=== PATIENT | male | born 1950 | race African-American/Black ===

== ENCOUNTER 2022-02-10 18:34 | Observation (INO) ==
[2022-02-10] MEDS ORDERED: ALBUTEROL/IPRATROPIUM 3 ML NEB RESP TX STA ×2 (20:08→23:47)
[2022-02-10 20:47] LABS: Basophils # 0.1 10*3/uL (0.0-0.2); Basophils % 0.4 % (0.0-0.8); Eosinophils # 0.6 10*3/uL (0.0-0.87); Eosinophils % 3.4 % (0.00-10.9); Hemoglobin 13.4 GM/DL (14.0-18.0); Immature Granulocytes % 0.8 %; Immature Granulocytes Absolute 0.14 #; Lymphocytes % 5.6 % (21.2-54.2); Mean Corpuscular HGB Conc 31.9 GM/DL (32-36); Mean Corpuscular Volume 94.8 FL (87-102); Mean Platelet Volume 11.3 FL (9.6-12.0); Monocytes % 10.8 % (1.7-12.7); Platelet Count 150 T/CUMM (130-400); Red Blood Count 4.43 MC/CUMM (3.8-5.5); White Blood Count 18.3 T/CUMM (4-12)
[2022-02-10 20:55] LABS: INR 1.1; PT Patient Result 11.7 SECS (10.5-12.0)
[2022-02-10 21:09] LABS: Albumin 3.6 G/DL (3.4-5.0); Bilirubin,Total 1.3 MG/DL (0.20-1.00); Osmolality,Calculated 272.8 MOS/KG (273-304); Platelet Estimate Normal; Potassium 3.6 MMOL/L (3.5-5.1); Total Protein 7.5 G/DL (6.4-8.2)
[2022-02-10] MEDS ORDERED: FUROSEMIDE 40 MG/4 ML VIAL IV STA (21:12)
[2022-02-10 21:27] LABS: Hyaline Casts,Urine 1 /LPF (0-3); Mucus,Urine Occasional /LPF (Occasional); RBC,Urine 2 /HPF (0-4)
[2022-02-10 21:28] LABS: Bilirubin,Urine Negative (Negative); Blood, Urine Trace mg/dL (Negative); Glucose,Urine (UA) Negative (Negative); Ketones,Urine Negative (Negative); Nitrite,Urine Negative (Negative); Protein,Urine Negative (Negative); Urine Appearance Clear (Clear); Urine Color Yellow (Yellow); Urine Specific Gravity 1.025 (1.001-1.035)
[2022-02-10] MEDS ORDERED: methylPREDNISolone SOD SUC 40 MG/1 ML VIAL IV STA (21:57)
[2022-02-10] MEDS ORDERED: diphenhydrAMINE 50 MG/1 ML VIAL IV STA (21:57)
[2022-02-10] MEDS ORDERED: methylPREDNISolone SOD SUC 125 MG/2 ML VIAL IV STA (21:57)
[2022-02-10] MEDS ORDERED: FAMOTIDINE 20 MG/2 ML VIAL IV ONE (22:05)
[2022-02-10] MEDS ORDERED: FAMOTIDINE 20 MG/2 ML VIAL IV STA (22:08)
[2022-02-11] MEDS ORDERED: guaiFENesin/DM ER 600-30 MG TABLET PO PRN (01:35)
[2022-02-11] MEDS ORDERED: GLUCAGON 1 MG VIAL IM PRN ×2 (01:35)
[2022-02-11] MEDS ORDERED: BISACODYL 5 MG TABLET PO PRN (01:35)
[2022-02-11] MEDS ORDERED: hydrALAZINE 20 MG/1 ML VIAL IV PRN (01:35)
[2022-02-11] MEDS ORDERED: NICOTINE 21 MG/24 HR PATCH TRANSDERM PRN (01:35)
[2022-02-11] MEDS ORDERED: diphenhydrAMINE CAP 25 MG CAPSULE PO PRN (01:35)
[2022-02-11] MEDS ORDERED: ZALEPLON 5 MG CAPSULE PO PRN (01:35)
[2022-02-11] MEDS ORDERED: ACETAMINOPHEN 325 MG TABLET PO PRN (01:35)
[2022-02-11] MEDS ORDERED: DEXTROSE 50% 25 GM/50 ML VIAL IV PRN (01:35)
[2022-02-11] MEDS ORDERED: ONDANSETRON 4 MG/2 ML VIAL IV PRN (01:35)
[2022-02-11] MEDS ORDERED: DEXTROSE 10% 250 ML BAG IV PRN (02:08)
[2022-02-11] MEDS: HEPARIN 5,000 UNIT/1 ML VIAL SUBCUT SCH ×2 (02:34→14:13)
[2022-02-11 06:11] LABS: Blood Urea Nitrogen 12 MG/DL (7-18); Carbon Dioxide 20 MMOL/L (21-32); Chloride 103 MMOL/L (98-107); Estimated Glom Filtration Rate 96 ML/MIN; Glucose 195 MG/DL (74-106); Osmolality,Calculated 268.5 MOS/KG (273-304); Sodium 132 MMOL/L (136-145)
[2022-02-11 06:14] LABS: Calcium < 5.0 MG/DL (8.5-10.1)
[2022-02-11 06:16] LABS: Potassium 6.2 MMOL/L (3.5-5.1)
[2022-02-11 07:02] LABS: Basophils # 0.1 10*3/uL (0.0-0.2); Basophils % 0.3 % (0.0-0.8); Eosinophils % 0.1 % (0.00-10.9); Hematocrit 36.2 VOL% (42.0-52.0); Hemoglobin 11.8 GM/DL (14.0-18.0); Immature Granulocytes % 1.6 %; Immature Granulocytes Absolute 0.31 #; Lymphocytes % 5.5 % (21.2-54.2); Mean Corpuscular HGB Conc 32.6 GM/DL (32-36); Mean Platelet Volume 12.4 FL (9.6-12.0); Monocytes # 0.7 10*3/uL (0.11-0.8); Monocytes % 3.8 % (1.7-12.7); Neutrophils % 88.7 % (38.7-73.9); Platelet Count 142 T/CUMM (130-400); Red Blood Count 3.85 MC/CUMM (3.8-5.5); White Blood Count 19.1 T/CUMM (4-12)
[2022-02-11] MEDS: ALBUTEROL/IPRATROPIUM 3 ML NEB RESP TX SCH ×3 (07:08→19:35)
[2022-02-11 07:21] LABS: Lymphocytes 2 % (20-55); Platelet Estimate Adequate; Total Cells Counted 100
[2022-02-11 07:55] LABS: Arterial Base Excess iSTAT 3 MMOL/L (-2.5-2.5); Arterial Bicarbonate iSTAT 27.9 MMOL/L (20-26); Arterial O2 Saturation iSTAT 95 % (95-100); Arterial PCO2 iSTAT 43 MM HG (35-48); Arterial PO2 iSTAT 75 MM HG (80-95); Arterial Total CO2 iSTAT 29 MMO/L (23-27); Arterial pH iSTAT 7.421 (7.35-7.45)
[2022-02-11] MEDS: INSULIN LISPRO 100 UNIT/ML SUBCUT SCH ×4 (09:55→21:30)
[2022-02-11] MEDS: PANTOPRAZOLE 40 MG TABLET PO SCH (09:55)
[2022-02-11] MEDS: FUROSEMIDE 40 MG/4 ML VIAL IV SCH (16:57)
[2022-02-12] MEDS: ALBUTEROL/IPRATROPIUM 3 ML NEB RESP TX SCH ×4 (01:15→18:30)
[2022-02-12] MEDS: HEPARIN 5,000 UNIT/1 ML VIAL SUBCUT SCH ×2 (01:40→13:26)
[2022-02-12 05:08] LABS: Basophils # 0.1 10*3/uL (0.0-0.2); Basophils % 0.4 % (0.0-0.8); Eosinophils # 0.2 10*3/uL (0.0-0.87); Eosinophils % 0.9 % (0.00-10.9); Hematocrit 35.7 VOL% (42.0-52.0); Hemoglobin 11.6 GM/DL (14.0-18.0); Immature Granulocytes % 0.8 %; Immature Granulocytes Absolute 0.14 #; Lymphocytes # 1.8 10*3/uL (1.4-4.0); Lymphocytes % 10.1 % (21.2-54.2); Mean Corpuscular HGB Conc 32.5 GM/DL (32-36); Mean Corpuscular Volume 93.2 FL (87-102); Mean Platelet Volume 11.6 FL (9.6-12.0); Monocytes # 1.8 10*3/uL (0.11-0.8); Monocytes % 10.1 % (1.7-12.7); Neutrophils % 77.7 % (38.7-73.9); Platelet Count 141 T/CUMM (130-400); Red Blood Count 3.83 MC/CUMM (3.8-5.5); Red Cell Distribution Width 15.1 % (9.3-17.3); White Blood Count 17.9 T/CUMM (4-12)
[2022-02-12 05:50] LABS: Calcium 8.6 MG/DL (8.5-10.1); Osmolality,Calculated 282.4 MOS/KG (273-304); Potassium 3.3 MMOL/L (3.5-5.1)
[2022-02-12] MEDS: INSULIN LISPRO 100 UNIT/ML SUBCUT SCH ×4 (07:57→20:30)
[2022-02-12] MEDS: PANTOPRAZOLE 40 MG TABLET PO SCH (08:34)
[2022-02-12] MEDS: FUROSEMIDE 40 MG/4 ML VIAL IV SCH (08:34)
[2022-02-12] MEDS ORDERED: hydrOXYzine HCL 25 MG TABLET PO PRN (13:06)
[2022-02-12] MEDS ORDERED: POTASSIUM CHLORIDE 20 MEQ TABLET PO ONE (13:06)
[2022-02-12] MEDS: VALSARTAN 160 MG TABLET PO SCH (13:25)
[2022-02-12] MEDS: METOPROLOL SUCCINATE XL 100 MG TABLET PO SCH (13:25)
[2022-02-12] MEDS: ASPIRIN EC 81 MG TABLET PO SCH (13:25)
[2022-02-12] MEDS: SPIRONOLACTONE 25 MG TABLET PO SCH (13:25)
[2022-02-12] MEDS: GLIMEPIRIDE 4 MG TABLET PO SCH (17:03)
[2022-02-12] MEDS: DORZOLAMIDE/TIMOLOL OPH SOLN 10 ML BOTTLE BOTH EYES SCH (20:30)
[2022-02-12] MEDS: GABAPENTIN 300 MG CAPSULE PO SCH (20:30)
[2022-02-12] MEDS ORDERED: ATORVASTATIN 40 MG TABLET PO SCH (21:00)
[2022-02-12] MEDS ORDERED: LATANOPROST 0.005% OPH SOLN 2.5 ML BOTTLE BOTH EYES SCH (21:00)
[2022-02-13] MEDS: ALBUTEROL/IPRATROPIUM 3 ML NEB RESP TX SCH ×3 (00:35→12:53)
[2022-02-13] MEDS: HEPARIN 5,000 UNIT/1 ML VIAL SUBCUT SCH (02:15)
[2022-02-13 05:07] LABS: Basophils # 0.1 10*3/uL (0.0-0.2); Basophils % 0.6 % (0.0-0.8); Eosinophils # 0.7 10*3/uL (0.0-0.87); Eosinophils % 5.5 % (0.00-10.9); Hematocrit 35.9 VOL% (42.0-52.0); Hemoglobin 11.5 GM/DL (14.0-18.0); Immature Granulocytes % 1.6 %; Lymphocytes # 1.3 10*3/uL (1.4-4.0); Lymphocytes % 10.3 % (21.2-54.2); Mean Corpuscular Volume 93.5 FL (87-102); Mean Platelet Volume 11.7 FL (9.6-12.0); Monocytes # 1.8 10*3/uL (0.11-0.8); Monocytes % 14.1 % (1.7-12.7); Neutrophils % 67.9 % (38.7-73.9); Platelet Count 144 T/CUMM (130-400); Red Blood Count 3.84 MC/CUMM (3.8-5.5); Red Cell Distribution Width 15.2 % (9.3-17.3); White Blood Count 12.5 T/CUMM (4-12)
[2022-02-13] MEDS: INSULIN LISPRO 100 UNIT/ML SUBCUT SCH ×2 (08:54→13:24)
[2022-02-13] MEDS: ASPIRIN EC 81 MG TABLET PO SCH (08:55)
[2022-02-13] MEDS: GLIMEPIRIDE 4 MG TABLET PO SCH (08:55)
[2022-02-13] MEDS: GABAPENTIN 300 MG CAPSULE PO SCH (08:55)
[2022-02-13] MEDS: PANTOPRAZOLE 40 MG TABLET PO SCH (08:55)
[2022-02-13] MEDS: VALSARTAN 160 MG TABLET PO SCH (08:56)
[2022-02-13] MEDS: DORZOLAMIDE/TIMOLOL OPH SOLN 10 ML BOTTLE BOTH EYES SCH (08:56)
[2022-02-13] MEDS: METOPROLOL SUCCINATE XL 100 MG TABLET PO SCH (08:56)
[2022-02-13] MEDS: SPIRONOLACTONE 25 MG TABLET PO SCH (08:56)
[2022-02-13 11:48] VITALS: BP 149/78
== END 2022-02-13 14:52 | disposition home or self-care (01) ==
LOC: N.ED 18:34 → INTOOBSV 02-11 01:35 → SUATTDRO 02-11 01:35 → N.EDINP 02-11 02:17 → N.2E 02-11 03:27 → N.TELES 02-11 03:27 → UNDODISIN 02-13 14:52
PROVIDERS: ADMIT Internal Medicine; ATTEND Emergency Medicine

== ENCOUNTER 2022-06-05 04:26 | Inpatient (IN) ==
[2022-06-05] MEDS ORDERED: SODIUM CHLORIDE 0.9% 1,000 ML IV STA (04:39)
[2022-06-05] MEDS ORDERED: ONDANSETRON 4 MG/2 ML VIAL IV STA (04:39)
[2022-06-05 04:54] LABS: Basophils # 0.1 10*3/uL (0.0-0.2); Basophils % 0.4 % (0.0-0.8); Eosinophils # 0.2 10*3/uL (0.0-0.87); Eosinophils % 1.1 % (0.00-10.9); Hematocrit 28.7 VOL% (42.0-52.0); Hemoglobin 8.6 GM/DL (14.0-18.0); Immature Granulocytes Absolute 0.22 #; Lymphocytes # 1.1 10*3/uL (1.4-4.0); Lymphocytes % 5.1 % (21.2-54.2); Mean Corpuscular Volume 98.6 FL (87-102); Mean Platelet Volume 9.7 FL (9.6-12.0); Monocytes # 1.3 10*3/uL (0.11-0.8); Monocytes % 5.9 % (1.7-12.7); Neutrophils % 86.5 % (38.7-73.9); Platelet Count 546 T/CUMM (130-400); Red Blood Count 2.91 MC/CUMM (3.8-5.5); Red Cell Distribution Width 18.6 % (9.3-17.3); White Blood Count 21.5 T/CUMM (4-12)
[2022-06-05 05:14] LABS: Band Neutrophils 2 % (0-10); Eosinophils 2 % (0-10); Hypochromia Slight; Lymphocytes 1 % (20-55); Platelet Estimate Adequate; Total Cells Counted 100
[2022-06-05 05:23] LABS: Albumin 1.6 G/DL (3.4-5.0); Bilirubin,Total 0.5 MG/DL (0.20-1.00); Calcium 8.1 MG/DL (8.5-10.1); Osmolality,Calculated 288.8 MOS/KG (273-304)
[2022-06-05 05:43] LABS: Bacteria,Urine Occasional /HPF (Few); Glucose,Urine (UA) Negative (Negative); Hyaline Casts,Urine 28 /LPF (0-3); Mucus,Urine Occasional /LPF (Occasional); Protein,Urine 30 mg/dL (Negative); RBC,Urine 10 /HPF (0-4); Urine Appearance Clear (Clear); Urine Color Yellow (Yellow); Urine Specific Gravity 1.015 (1.001-1.035)
[2022-06-05 05:44] LABS: Bilirubin,Urine Small mg/dL (Negative); Blood, Urine Trace mg/dL (Negative); Ketones,Urine Trace mg/dL (Negative); Nitrite,Urine Negative (Negative)
[2022-06-05] MEDS ORDERED: MELOXICAM 7.5 MG TABLET PO PRN (08:06)
[2022-06-05] MEDS ORDERED: GLUCAGON 1 MG VIAL IM PRN (08:06)
[2022-06-05] MEDS ORDERED: oxyCODONE/ACETAMINOPHEN 5-325 MG TABLET PO PRN (08:06)
[2022-06-05] MEDS ORDERED: MORPHINE 2 MG/1 ML SYRINGE IV PRN (08:06)
[2022-06-05] MEDS ORDERED: ONDANSETRON 4 MG/2 ML VIAL IV PRN (08:06)
[2022-06-05] MEDS ORDERED: DEXTROSE 10% 250 ML BAG IV PRN ×2 (08:06→14:22)
[2022-06-05] MEDS ORDERED: GABAPENTIN 100 MG CAPSULE PO SCH (09:00)
[2022-06-05] MEDS ORDERED: PANTOPRAZOLE 40 MG TABLET PO SCH (09:00)
[2022-06-05] MEDS: ASPIRIN EC 81 MG TABLET PO SCH (09:44)
[2022-06-05] MEDS: DORZOLAMIDE/TIMOLOL OPH SOLN 10 ML BOTTLE BOTH EYES SCH ×2 (09:44→21:52)
[2022-06-05] MEDS: VALSARTAN 160 MG TABLET PO SCH (09:44)
[2022-06-05] MEDS: ATORVASTATIN 40 MG TABLET PO SCH (09:44)
[2022-06-05] MEDS: CLOBETASOL 0.05% CREAM 15 GM TUBE TOP SCH ×2 (09:44→21:52)
[2022-06-05] MEDS: METOPROLOL SUCCINATE XL 50 MG TABLET PO SCH (09:44)
[2022-06-05] MEDS: FUROSEMIDE 40 MG TABLET PO SCH (09:44)
[2022-06-05] MEDS: PANTOPRAZOLE 40 MG TABLET PO SCH (09:45)
[2022-06-05] MEDS: DOCUSATE SODIUM 100 MG CAPSULE PO SCH ×2 (09:45→21:52)
[2022-06-05] MEDS: SODIUM CHLORIDE 0.9% 1,000 ML IV SCH ×2 (09:48→18:21)
[2022-06-05] MEDS ORDERED: MAGNESIUM SULF RIDER 2 GM/50 ML PREMIX IV PRN (14:18)
[2022-06-05] MEDS ORDERED: MAGNESIUM SULF RIDER 4 GM/100 ML PREMIX IV PRN (14:18)
[2022-06-05] MEDS ORDERED: POTASSIUM CHLORIDE RIDER 10 MEQ/100 ML PREMIX IV PRN (14:19)
[2022-06-05] MEDS ORDERED: POTASSIUM CHLORIDE 20 MEQ TABLET PO PRN (14:19)
[2022-06-05] MEDS: cefTRIAXone 1,000 MG in SODIUM CHLORIDE 0.9% 100 ML IV SCH (15:14)
[2022-06-05] MEDS: INSULIN LISPRO 100 UNIT/ML SUBCUT SCH ×2 (15:54→21:52)
[2022-06-05] MEDS: LATANOPROST 0.005% OPH SOLN 2.5 ML BOTTLE BOTH EYES SCH (21:53)
[2022-06-06] MEDS: SODIUM CHLORIDE 0.9% 1,000 ML IV SCH ×2 (04:11→14:45)
[2022-06-06 05:52] LABS: Basophils # 0.1 10*3/uL (0.0-0.2); Basophils % 0.8 % (0.0-0.8); Eosinophils # 0.5 10*3/uL (0.0-0.87); Eosinophils % 3.1 % (0.00-10.9); Hematocrit 27.1 VOL% (42.0-52.0); Hemoglobin 8.2 GM/DL (14.0-18.0); Immature Granulocytes % 0.7 %; Immature Granulocytes Absolute 0.11 #; Lymphocytes # 1.2 10*3/uL (1.4-4.0); Lymphocytes % 7.6 % (21.2-54.2); Mean Corpuscular HGB Conc 30.3 GM/DL (32-36); Mean Corpuscular Volume 97.8 FL (87-102); Mean Platelet Volume 10.4 FL (9.6-12.0); Monocytes # 0.5 10*3/uL (0.11-0.8); Neutrophils % 84.8 % (38.7-73.9); Platelet Count 295 T/CUMM (130-400); Red Blood Count 2.77 MC/CUMM (3.8-5.5); Red Cell Distribution Width 18.6 % (9.3-17.3); White Blood Count 15.3 T/CUMM (4-12)
[2022-06-06 06:15] LABS: Eosinophils 4 % (0-10); Hypochromia Slight; Lymphocytes 4 % (20-55); Platelet Estimate Adequate; Total Cells Counted 100
[2022-06-06 06:25] LABS: Albumin 1.5 G/DL (3.4-5.0); Bilirubin,Total 0.5 MG/DL (0.20-1.00); Calcium 7.9 MG/DL (8.5-10.1); Osmolality,Calculated 285.1 MOS/KG (273-304); Total Protein 5.4 G/DL (6.4-8.2)
[2022-06-06] MEDS: INSULIN LISPRO 100 UNIT/ML SUBCUT SCH ×4 (08:07→21:55)
[2022-06-06] MEDS: METOPROLOL SUCCINATE XL 50 MG TABLET PO SCH (09:28)
[2022-06-06] MEDS: ATORVASTATIN 40 MG TABLET PO SCH (09:29)
[2022-06-06] MEDS: DOCUSATE SODIUM 100 MG CAPSULE PO SCH ×2 (09:29→21:55)
[2022-06-06] MEDS: PANTOPRAZOLE 40 MG TABLET PO SCH (09:29)
[2022-06-06] MEDS: ASPIRIN EC 81 MG TABLET PO SCH (09:30)
[2022-06-06] MEDS: FUROSEMIDE 40 MG TABLET PO SCH (09:30)
[2022-06-06] MEDS: DORZOLAMIDE/TIMOLOL OPH SOLN 10 ML BOTTLE BOTH EYES SCH ×2 (09:31→21:55)
[2022-06-06] MEDS: CLOBETASOL 0.05% CREAM 15 GM TUBE TOP SCH ×2 (09:32→21:55)
[2022-06-06] MEDS: cefTRIAXone 1,000 MG in SODIUM CHLORIDE 0.9% 100 ML IV SCH (14:46)
[2022-06-06] MEDS: VANCOMYCIN INJ 1,500 MG in SODIUM CHLORIDE 0.9% 500 ML IV SCH (16:00)
[2022-06-06] MEDS: hydrOXYzine HCL 25 MG TABLET PO PRN (16:22)
[2022-06-06] MEDS: ZINC OXIDE PASTE 113 GM TUBE TOP PRN (17:37)
[2022-06-06] MEDS: LATANOPROST 0.005% OPH SOLN 2.5 ML BOTTLE BOTH EYES SCH (23:14)
[2022-06-07] MEDS: VANCOMYCIN INJ 1,500 MG in SODIUM CHLORIDE 0.9% 500 ML IV SCH ×2 (03:00→15:31)
[2022-06-07 05:43] LABS: Basophils % 0.2 % (0.0-0.8); Eosinophils # 0.6 10*3/uL (0.0-0.87); Eosinophils % 5.7 % (0.00-10.9); Hematocrit 25.4 VOL% (42.0-52.0); Hemoglobin 7.6 GM/DL (14.0-18.0); Immature Granulocytes % 0.7 %; Immature Granulocytes Absolute 0.07 #; Lymphocytes % 9.5 % (21.2-54.2); Mean Corpuscular HGB Conc 29.9 GM/DL (32-36); Mean Corpuscular Volume 100.4 FL (87-102); Mean Platelet Volume 10.5 FL (9.6-12.0); Monocytes # 0.4 10*3/uL (0.11-0.8); Monocytes % 3.5 % (1.7-12.7); Neutrophils % 80.4 % (38.7-73.9); Platelet Count 319 T/CUMM (130-400); Red Blood Count 2.53 MC/CUMM (3.8-5.5); Red Cell Distribution Width 18.3 % (9.3-17.3); White Blood Count 10.7 T/CUMM (4-12)
[2022-06-07 06:04] LABS: Albumin 1.4 G/DL (3.4-5.0); Bilirubin,Total 0.4 MG/DL (0.20-1.00); Calcium 7.9 MG/DL (8.5-10.1); Osmolality,Calculated 278.3 MOS/KG (273-304); Potassium 4.2 MMOL/L (3.5-5.1); Total Protein 5.4 G/DL (6.4-8.2)
[2022-06-07] MEDS: INSULIN LISPRO 100 UNIT/ML SUBCUT SCH ×4 (08:01→21:14)
[2022-06-07] MEDS: METOPROLOL SUCCINATE XL 50 MG TABLET PO SCH (10:44)
[2022-06-07] MEDS: DOCUSATE SODIUM 100 MG CAPSULE PO SCH ×2 (10:44→21:14)
[2022-06-07] MEDS: VALSARTAN 160 MG TABLET PO SCH (10:44)
[2022-06-07] MEDS: ATORVASTATIN 40 MG TABLET PO SCH (10:44)
[2022-06-07] MEDS: ASPIRIN EC 81 MG TABLET PO SCH (10:45)
[2022-06-07] MEDS: PANTOPRAZOLE 40 MG TABLET PO SCH (10:45)
[2022-06-07] MEDS: DORZOLAMIDE/TIMOLOL OPH SOLN 10 ML BOTTLE BOTH EYES SCH ×2 (10:45→21:13)
[2022-06-07] MEDS: CLOBETASOL 0.05% CREAM 15 GM TUBE TOP SCH ×2 (10:45→21:15)
[2022-06-07] MEDS: cefTRIAXone 1,000 MG in SODIUM CHLORIDE 0.9% 100 ML IV SCH (14:37)
[2022-06-07] MEDS: LATANOPROST 0.005% OPH SOLN 2.5 ML BOTTLE BOTH EYES SCH (21:14)
[2022-06-07] MEDS: SKIN HEALING OINT (AQUAPHOR) 50 GM TUBE TOP PRN (21:15)
[2022-06-08] MEDS: VANCOMYCIN INJ 1,500 MG in SODIUM CHLORIDE 0.9% 500 ML IV SCH ×2 (04:17→16:11)
[2022-06-08] MEDS: NYSTATIN 500,000 UNIT/5 ML UDCUP SWISH/SWAL PRN ×2 (06:39→21:55)
[2022-06-08] MEDS: SODIUM CHLORIDE 0.9% 1,000 ML IV SCH ×2 (07:37→16:40)
[2022-06-08] MEDS: INSULIN LISPRO 100 UNIT/ML SUBCUT SCH ×4 (07:38→21:56)
[2022-06-08] MEDS: ASPIRIN EC 81 MG TABLET PO SCH (08:48)
[2022-06-08] MEDS: VALSARTAN 160 MG TABLET PO SCH (08:48)
[2022-06-08] MEDS: PANTOPRAZOLE 40 MG TABLET PO SCH (08:48)
[2022-06-08] MEDS: METOPROLOL SUCCINATE XL 50 MG TABLET PO SCH (08:48)
[2022-06-08] MEDS: ATORVASTATIN 40 MG TABLET PO SCH (08:48)
[2022-06-08] MEDS: DORZOLAMIDE/TIMOLOL OPH SOLN 10 ML BOTTLE BOTH EYES SCH ×2 (08:49→21:56)
[2022-06-08] MEDS: DOCUSATE SODIUM 100 MG CAPSULE PO SCH ×2 (08:49→21:55)
[2022-06-08] MEDS: CLOBETASOL 0.05% CREAM 15 GM TUBE TOP SCH ×2 (08:50→21:56)
[2022-06-08 11:06] LABS: Basophils % 0.4 % (0.0-0.8); Eosinophils # 0.2 10*3/uL (0.0-0.87); Eosinophils % 7.9 % (0.00-10.9); Hematocrit 26.5 VOL% (42.0-52.0); Immature Granulocytes % 13.2 %; Immature Granulocytes Absolute 0.37 #; Lymphocytes # 0.8 10*3/uL (1.4-4.0); Lymphocytes % 26.8 % (21.2-54.2); Mean Corpuscular HGB Conc 30.2 GM/DL (32-36); Mean Corpuscular Volume 99.6 FL (87-102); Mean Platelet Volume 10.4 FL (9.6-12.0); Monocytes # 0.4 10*3/uL (0.11-0.8); Monocytes % 12.5 % (1.7-12.7); NRBC # 0.02 10*3/uL; Neutrophils % 39.2 % (38.7-73.9); Red Blood Count 2.66 MC/CUMM (3.8-5.5); Red Cell Distribution Width 18.2 % (9.3-17.3)
[2022-06-08 11:14] LABS: Alanine Aminotransferase 19 U/L (16-61); Albumin 1.5 G/DL (3.4-5.0); Alkaline Phosphatase 72 U/L (45-117); Aspartate Amino Transferase 12 U/L (0-37); Bilirubin,Total < 0.39 MG/DL (0.20-1.00); Blood Urea Nitrogen 10 MG/DL (7-18); Calcium 8.3 MG/DL (8.5-10.1); Carbon Dioxide 31 MMOL/L (21-32); Chloride 107 MMOL/L (98-107); Glucose 154 MG/DL (74-106); Osmolality,Calculated 282.3 MOS/KG (273-304); Potassium 4.1 MMOL/L (3.5-5.1); Sodium 141 MMOL/L (136-145); Total Protein 5.7 G/DL (6.4-8.2)
[2022-06-08 11:15] LABS: White Blood Count 2.8 T/CUMM (4-12)
[2022-06-08 11:16] LABS: Platelet Count 253 T/CUMM (130-400)
[2022-06-08 12:28] LABS: Anisocytosis 1+; Band Neutrophils 1 % (0-10); Eosinophils 10 % (0-10); Lymphocytes 24 % (20-55); Platelet Estimate Adequate; Total Cells Counted 100
[2022-06-08] MEDS: cefTRIAXone 1,000 MG in SODIUM CHLORIDE 0.9% 100 ML IV SCH (15:17)
[2022-06-08] MEDS: LATANOPROST 0.005% OPH SOLN 2.5 ML BOTTLE BOTH EYES SCH (21:56)
[2022-06-09 04:23] LABS: Basophils % 0.4 % (0.0-0.8); Eosinophils # 0.1 10*3/uL (0.0-0.87); Eosinophils % 2.6 % (0.00-10.9); Hemoglobin 7.9 GM/DL (14.0-18.0); Immature Granulocytes % 8.1 %; Immature Granulocytes Absolute 0.44 #; Lymphocytes # 1.2 10*3/uL (1.4-4.0); Lymphocytes % 21.3 % (21.2-54.2); Mean Corpuscular HGB Conc 30.4 GM/DL (32-36); Mean Corpuscular Volume 99.6 FL (87-102); Mean Platelet Volume 10.7 FL (9.6-12.0); Monocytes # 0.5 10*3/uL (0.11-0.8); Monocytes % 8.8 % (1.7-12.7); NRBC # 0.02 10*3/uL; Neutrophils % 58.8 % (38.7-73.9); Red Blood Count 2.61 MC/CUMM (3.8-5.5); Red Cell Distribution Width 18.1 % (9.3-17.3); White Blood Count 5.4 T/CUMM (4-12)
[2022-06-09 04:24] LABS: Platelet Count 193 T/CUMM (130-400)
[2022-06-09 04:35] LABS: Alanine Aminotransferase 19 U/L (16-61); Albumin 1.5 G/DL (3.4-5.0); Alkaline Phosphatase 72 U/L (45-117); Aspartate Amino Transferase 16 U/L (0-37); Bilirubin,Total < 0.39 MG/DL (0.20-1.00); Blood Urea Nitrogen 9 MG/DL (7-18); Calcium 8.2 MG/DL (8.5-10.1); Carbon Dioxide 31 MMOL/L (21-32); Chloride 108 MMOL/L (98-107); Glucose 174 MG/DL (74-106); Osmolality,Calculated 285.1 MOS/KG (273-304); Potassium 4.2 MMOL/L (3.5-5.1); Sodium 142 MMOL/L (136-145); Total Protein 5.6 G/DL (6.4-8.2)
[2022-06-09 04:53] LABS: Band Neutrophils 2 % (0-10); Eosinophils 4 % (0-10); Lymphocytes 17 % (20-55); Metamyelocytes 2 %; Myelocytes 1 %; Total Cells Counted 100
[2022-06-09 04:55] LABS: Anisocytosis 1+; Macrocytosis 1+
[2022-06-09] MEDS: NYSTATIN 500,000 UNIT/5 ML UDCUP SWISH/SWAL PRN ×3 (05:11→21:37)
[2022-06-09] MEDS: INSULIN LISPRO 100 UNIT/ML SUBCUT SCH ×4 (09:09→21:38)
[2022-06-09] MEDS: METOPROLOL SUCCINATE XL 50 MG TABLET PO SCH (09:10)
[2022-06-09] MEDS: ASPIRIN EC 81 MG TABLET PO SCH (09:10)
[2022-06-09] MEDS: VALSARTAN 160 MG TABLET PO SCH (09:10)
[2022-06-09] MEDS: PANTOPRAZOLE 40 MG TABLET PO SCH (09:10)
[2022-06-09] MEDS: ATORVASTATIN 40 MG TABLET PO SCH (09:10)
[2022-06-09] MEDS: DOCUSATE SODIUM 100 MG CAPSULE PO SCH ×2 (09:10→21:37)
[2022-06-09] MEDS: CLOBETASOL 0.05% CREAM 15 GM TUBE TOP SCH ×2 (09:10→21:38)
[2022-06-09] MEDS: DORZOLAMIDE/TIMOLOL OPH SOLN 10 ML BOTTLE BOTH EYES SCH ×2 (09:10→21:38)
[2022-06-09] MEDS: SODIUM CHLORIDE 0.9% 1,000 ML IV SCH (10:43)
[2022-06-09] MEDS: VANCOMYCIN INJ 1,500 MG in SODIUM CHLORIDE 0.9% 500 ML IV SCH (11:23)
[2022-06-09] MEDS ORDERED: FILGRASTIM-SNDZ 480 MCG/0.8 ML SYRINGE SUBCUT SCH (11:35)
[2022-06-09] MEDS: LATANOPROST 0.005% OPH SOLN 2.5 ML BOTTLE BOTH EYES SCH (21:38)
[2022-06-09] MEDS: SKIN HEALING OINT (AQUAPHOR) 50 GM TUBE TOP PRN (21:38)
[2022-06-09] MEDS: SIMETHICONE CHEW 125 MG TABLET PO PRN (22:08)
[2022-06-10] MEDS: hydrOXYzine HCL 25 MG TABLET PO PRN ×2 (04:01→21:50)
[2022-06-10] MEDS: VANCOMYCIN INJ 1,500 MG in SODIUM CHLORIDE 0.9% 500 ML IV SCH ×2 (04:03→21:51)
[2022-06-10 05:53] LABS: Albumin 1.7 G/DL (3.4-5.0); Bilirubin,Total 0.5 MG/DL (0.20-1.00); Calcium 8.7 MG/DL (8.5-10.1); Potassium 4.3 MMOL/L (3.5-5.1); Total Protein 6.1 G/DL (6.4-8.2)
[2022-06-10 06:54] LABS: Basophils # 0.1 10*3/uL (0.0-0.2); Basophils % 0.3 % (0.0-0.8); Eosinophils # 0.1 10*3/uL (0.0-0.87); Eosinophils % 0.4 % (0.00-10.9); Hematocrit 27.1 VOL% (42.0-52.0); Hemoglobin 8.3 GM/DL (14.0-18.0); Immature Granulocytes % 11.6 %; Immature Granulocytes Absolute 2.74 #; Lymphocytes # 1.5 10*3/uL (1.4-4.0); Lymphocytes % 6.3 % (21.2-54.2); Mean Corpuscular HGB Conc 30.6 GM/DL (32-36); Mean Corpuscular Volume 97.8 FL (87-102); Mean Platelet Volume 10.4 FL (9.6-12.0); Monocytes # 0.9 10*3/uL (0.11-0.8); Monocytes % 3.8 % (1.7-12.7); NRBC # 0.09 10*3/uL; Neutrophils % 77.6 % (38.7-73.9); Platelet Count 173 T/CUMM (130-400); Red Blood Count 2.77 MC/CUMM (3.8-5.5); Red Cell Distribution Width 17.8 % (9.3-17.3)
[2022-06-10 06:55] LABS: White Blood Count 23.7 T/CUMM (4-12)
[2022-06-10 07:18] LABS: Band Neutrophils 3 % (0-10); Hypochromia Slight; Lymphocytes 8 % (20-55); Nucleated Red Blood Cells 1 /100 WBC (0-5); Platelet Estimate Adequate; Total Cells Counted 100
[2022-06-10 07:19] LABS: Macrocytosis Slight
[2022-06-10] MEDS: INSULIN LISPRO 100 UNIT/ML SUBCUT SCH ×4 (07:38→21:51)
[2022-06-10] MEDS: DOCUSATE SODIUM 100 MG CAPSULE PO SCH ×2 (09:26→21:50)
[2022-06-10] MEDS: PANTOPRAZOLE 40 MG TABLET PO SCH (09:26)
[2022-06-10] MEDS: ATORVASTATIN 40 MG TABLET PO SCH (09:26)
[2022-06-10] MEDS: ASPIRIN EC 81 MG TABLET PO SCH (09:26)
[2022-06-10] MEDS: METOPROLOL SUCCINATE XL 50 MG TABLET PO SCH (09:26)
[2022-06-10] MEDS: NYSTATIN 500,000 UNIT/5 ML UDCUP SWISH/SWAL PRN ×2 (09:26→21:49)
[2022-06-10] MEDS: DORZOLAMIDE/TIMOLOL OPH SOLN 10 ML BOTTLE BOTH EYES SCH ×2 (09:27→21:50)
[2022-06-10] MEDS: CLOBETASOL 0.05% CREAM 15 GM TUBE TOP SCH ×2 (09:27→21:50)
[2022-06-10] MEDS: VALSARTAN 160 MG TABLET PO SCH (09:29)
[2022-06-10] MEDS: LATANOPROST 0.005% OPH SOLN 2.5 ML BOTTLE BOTH EYES SCH (21:50)
[2022-06-11 05:48] LABS: Basophils # 0.1 10*3/uL (0.0-0.2); Basophils % 0.4 % (0.0-0.8); Eosinophils # 0.1 10*3/uL (0.0-0.87); Eosinophils % 0.2 % (0.00-10.9); Hemoglobin 7.5 GM/DL (14.0-18.0); Immature Granulocytes % 11.9 %; Immature Granulocytes Absolute 3.39 #; Lymphocytes # 1.5 10*3/uL (1.4-4.0); Lymphocytes % 5.4 % (21.2-54.2); Mean Corpuscular Volume 99.2 FL (87-102); Mean Platelet Volume 10.8 FL (9.6-12.0); Monocytes # 1.2 10*3/uL (0.11-0.8); Monocytes % 4.3 % (1.7-12.7); Neutrophils % 77.8 % (38.7-73.9); Platelet Count 110 T/CUMM (130-400); Red Blood Count 2.52 MC/CUMM (3.8-5.5); Red Cell Distribution Width 17.8 % (9.3-17.3); White Blood Count 28.6 T/CUMM (4-12)
[2022-06-11 06:15] LABS: Albumin 1.7 G/DL (3.4-5.0); Band Neutrophils 3 % (0-10); Bilirubin,Total 0.4 MG/DL (0.20-1.00); Calcium 8.4 MG/DL (8.5-10.1); Eosinophils 2 % (0-10); Lymphocytes 5 % (20-55); Potassium 4.2 MMOL/L (3.5-5.1); Total Cells Counted 100; Total Protein 5.8 G/DL (6.4-8.2)
[2022-06-11 06:16] LABS: Hypochromia Slight; Macrocytosis Slight
[2022-06-11] MEDS: INSULIN LISPRO 100 UNIT/ML SUBCUT SCH ×4 (07:30→21:17)
[2022-06-11] MEDS ORDERED: CLINDAMYCIN INJ 900 MG/50 ML PREMIX IV ONE ×2 (09:00→10:00)
[2022-06-11] MEDS ORDERED: LIDOCAINE 1%/EPI INJ 20 ML VIAL ONE (10:29)
[2022-06-11] MEDS ORDERED: BUPIVACAINE MPF 0.25% 10 ML VIAL ONE (10:29)
[2022-06-11] MEDS ORDERED: TISSUE ADHESIVE 1 EACH APPLICATOR TOP ONE (10:29)
[2022-06-11] MEDS ORDERED: fentaNYL 100 MCG/2 ML VIAL ONE (10:44)
[2022-06-11] MEDS ORDERED: LACTATED RINGERS 1,000 ML IV SCH (11:30)
[2022-06-11] MEDS ORDERED: LIDOCAINE 2% 5 ML VIAL ONE (11:54)
[2022-06-11] MEDS ORDERED: SODIUM CHLORIDE 0.9% 250 ML IV ONE (11:54)
[2022-06-11] MEDS ORDERED: propofoL 200 MG/20 ML VIAL IV ONE (11:54)
[2022-06-11] MEDS ORDERED: LABETALOL 20 MG/4 ML SYRINGE IV ONE (12:41)
[2022-06-11] MEDS: DOCUSATE SODIUM 100 MG CAPSULE PO SCH ×2 (13:50→21:08)
[2022-06-11] MEDS: FUROSEMIDE 40 MG TABLET PO SCH (13:50)
[2022-06-11] MEDS: PANTOPRAZOLE 40 MG TABLET PO SCH (13:50)
[2022-06-11] MEDS: ATORVASTATIN 40 MG TABLET PO SCH (13:50)
[2022-06-11] MEDS: METOPROLOL SUCCINATE XL 50 MG TABLET PO SCH (13:50)
[2022-06-11] MEDS: VALSARTAN 160 MG TABLET PO SCH (13:51)
[2022-06-11] MEDS: ASPIRIN EC 81 MG TABLET PO SCH (13:51)
[2022-06-11] MEDS: DORZOLAMIDE/TIMOLOL OPH SOLN 10 ML BOTTLE BOTH EYES SCH ×2 (13:52→21:07)
[2022-06-11] MEDS: CLOBETASOL 0.05% CREAM 15 GM TUBE TOP SCH ×2 (13:52→21:07)
[2022-06-11] MEDS: VANCOMYCIN INJ 1,500 MG in SODIUM CHLORIDE 0.9% 500 ML IV SCH (15:29)
[2022-06-11] MEDS: LATANOPROST 0.005% OPH SOLN 2.5 ML BOTTLE BOTH EYES SCH (21:08)
[2022-06-12 05:12] LABS: Basophils # 0.1 10*3/uL (0.0-0.2); Basophils % 0.4 % (0.0-0.8); Eosinophils # 0.2 10*3/uL (0.0-0.87); Eosinophils % 0.6 % (0.00-10.9); Hematocrit 27.1 VOL% (42.0-52.0); Hemoglobin 8.3 GM/DL (14.0-18.0); Immature Granulocytes % 7.9 %; Immature Granulocytes Absolute 1.95 #; Lymphocytes # 1.7 10*3/uL (1.4-4.0); Mean Corpuscular HGB Conc 30.6 GM/DL (32-36); Mean Corpuscular Volume 99.3 FL (87-102); Mean Platelet Volume 9.9 FL (9.6-12.0); Monocytes # 1.3 10*3/uL (0.11-0.8); Monocytes % 5.2 % (1.7-12.7); NRBC # 0.23 10*3/uL; Neutrophils % 78.9 % (38.7-73.9); Platelet Count 117 T/CUMM (130-400); Red Blood Count 2.73 MC/CUMM (3.8-5.5); Red Cell Distribution Width 18.4 % (9.3-17.3); White Blood Count 24.7 T/CUMM (4-12)
[2022-06-12 05:32] LABS: Band Neutrophils 1 % (0-10); Hypochromia Slight; Lymphocytes 6 % (20-55); Macrocytosis Slight; Metamyelocytes 1 %; Nucleated Red Blood Cells 1 /100 WBC (0-5); Polychromasia Slight; Total Cells Counted 100
[2022-06-12 05:33] LABS: Platelet Estimate Adequate
[2022-06-12 05:40] LABS: Albumin 1.9 G/DL (3.4-5.0); Bilirubin,Total 0.5 MG/DL (0.20-1.00); Calcium 8.5 MG/DL (8.5-10.1); Potassium 4.2 MMOL/L (3.5-5.1)
[2022-06-12] MEDS: INSULIN LISPRO 100 UNIT/ML SUBCUT SCH ×4 (08:12→21:52)
[2022-06-12] MEDS: DOCUSATE SODIUM 100 MG CAPSULE PO SCH ×2 (10:13→21:52)
[2022-06-12] MEDS: PANTOPRAZOLE 40 MG TABLET PO SCH (10:13)
[2022-06-12] MEDS: VANCOMYCIN INJ 1,500 MG in SODIUM CHLORIDE 0.9% 500 ML IV SCH (10:13)
[2022-06-12] MEDS: FUROSEMIDE 40 MG TABLET PO SCH (10:13)
[2022-06-12] MEDS: METOPROLOL SUCCINATE XL 50 MG TABLET PO SCH (10:13)
[2022-06-12] MEDS: ASPIRIN EC 81 MG TABLET PO SCH (10:13)
[2022-06-12] MEDS: VALSARTAN 160 MG TABLET PO SCH (10:14)
[2022-06-12] MEDS: DORZOLAMIDE/TIMOLOL OPH SOLN 10 ML BOTTLE BOTH EYES SCH ×2 (10:14→21:52)
[2022-06-12] MEDS: CLOBETASOL 0.05% CREAM 15 GM TUBE TOP SCH ×2 (10:14→21:52)
[2022-06-12] MEDS: ATORVASTATIN 40 MG TABLET PO SCH (10:14)
[2022-06-12] MEDS: hydrOXYzine HCL 25 MG TABLET PO PRN (14:07)
[2022-06-12] MEDS: LATANOPROST 0.005% OPH SOLN 2.5 ML BOTTLE BOTH EYES SCH (21:52)
[2022-06-12] MEDS: VANCOMYCIN INJ 1,250 MG in SODIUM CHLORIDE 0.9% 250 ML IV SCH (22:02)
[2022-06-13 06:33] LABS: Albumin 1.9 G/DL (3.4-5.0); Bilirubin,Total 0.5 MG/DL (0.20-1.00); Calcium 8.3 MG/DL (8.5-10.1); Osmolality,Calculated 281.1 MOS/KG (273-304); Potassium 4.3 MMOL/L (3.5-5.1); Total Protein 5.5 G/DL (6.4-8.2)
[2022-06-13] MEDS: INSULIN LISPRO 100 UNIT/ML SUBCUT SCH ×4 (07:50→21:29)
[2022-06-13 08:28] LABS: Basophils # 0.1 10*3/uL (0.0-0.2); Basophils % 0.7 % (0.0-0.8); Eosinophils # 0.2 10*3/uL (0.0-0.87); Eosinophils % 1.4 % (0.00-10.9); Hematocrit 29.3 VOL% (42.0-52.0); Immature Granulocytes % 7.9 %; Immature Granulocytes Absolute 1.05 #; Lymphocytes # 1.5 10*3/uL (1.4-4.0); Lymphocytes % 11.1 % (21.2-54.2); Mean Corpuscular HGB Conc 30.7 GM/DL (32-36); Mean Corpuscular Volume 96.7 FL (87-102); Mean Platelet Volume 11.6 FL (9.6-12.0); Monocytes % 7.5 % (1.7-12.7); NRBC # 0.13 10*3/uL; Neutrophils % 71.4 % (38.7-73.9); Platelet Count 100 T/CUMM (130-400); Red Blood Count 3.03 MC/CUMM (3.8-5.5); Red Cell Distribution Width 18.9 % (9.3-17.3); White Blood Count 13.4 T/CUMM (4-12)
[2022-06-13 08:45] LABS: Band Neutrophils 2 % (0-10); Eosinophils 3 % (0-10); Lymphocytes 8 % (20-55); Nucleated Red Blood Cells 1 /100 WBC (0-5); Total Cells Counted 100
[2022-06-13 08:46] LABS: Hypochromia Slight; Microcytosis Slight
[2022-06-13] MEDS: ASPIRIN EC 81 MG TABLET PO SCH (09:15)
[2022-06-13] MEDS: ATORVASTATIN 40 MG TABLET PO SCH (09:15)
[2022-06-13] MEDS: DOCUSATE SODIUM 100 MG CAPSULE PO SCH ×2 (09:15→21:24)
[2022-06-13] MEDS: VALSARTAN 160 MG TABLET PO SCH (09:15)
[2022-06-13] MEDS: hydrALAZINE 25 MG TABLET PO SCH ×3 (09:15→21:24)
[2022-06-13] MEDS: FUROSEMIDE 40 MG TABLET PO SCH (09:15)
[2022-06-13] MEDS: METOPROLOL SUCCINATE XL 50 MG TABLET PO SCH (09:15)
[2022-06-13] MEDS: PANTOPRAZOLE 40 MG TABLET PO SCH (09:15)
[2022-06-13] MEDS: DORZOLAMIDE/TIMOLOL OPH SOLN 10 ML BOTTLE BOTH EYES SCH ×2 (09:17→21:24)
[2022-06-13] MEDS: VANCOMYCIN INJ 1,250 MG in SODIUM CHLORIDE 0.9% 250 ML IV SCH ×2 (09:17→21:25)
[2022-06-13] MEDS: CLOBETASOL 0.05% CREAM 15 GM TUBE TOP SCH ×2 (09:17→21:24)
[2022-06-13] MEDS: CYCLOBENZAPRINE 10 MG TABLET PO PRN (21:26)
[2022-06-13] MEDS: LATANOPROST 0.005% OPH SOLN 2.5 ML BOTTLE BOTH EYES SCH (21:27)
[2022-06-14 05:16] LABS: Basophils # 0.1 10*3/uL (0.0-0.2); Basophils % 0.9 % (0.0-0.8); Eosinophils # 0.3 10*3/uL (0.0-0.87); Eosinophils % 2.3 % (0.00-10.9); Hematocrit 30.9 VOL% (42.0-52.0); Hemoglobin 9.4 GM/DL (14.0-18.0); Immature Granulocytes % 6.9 %; Immature Granulocytes Absolute 0.95 #; Lymphocytes # 1.6 10*3/uL (1.4-4.0); Lymphocytes % 11.6 % (21.2-54.2); Mean Corpuscular HGB Conc 30.4 GM/DL (32-36); Mean Platelet Volume 11.6 FL (9.6-12.0); Monocytes # 1.4 10*3/uL (0.11-0.8); Monocytes % 9.9 % (1.7-12.7); NRBC # 0.07 10*3/uL; Neutrophils % 68.4 % (38.7-73.9); Platelet Count 95 T/CUMM (130-400); Red Blood Count 3.12 MC/CUMM (3.8-5.5); Red Cell Distribution Width 19.6 % (9.3-17.3); White Blood Count 13.7 T/CUMM (4-12)
[2022-06-14 05:40] LABS: Albumin 1.7 G/DL (3.4-5.0); Bilirubin,Total 0.5 MG/DL (0.20-1.00); Calcium 8.6 MG/DL (8.5-10.1); Osmolality,Calculated 273.5 MOS/KG (273-304); Total Protein 5.8 G/DL (6.4-8.2)
[2022-06-14 05:56] LABS: Band Neutrophils 1 % (0-10); Eosinophils 1 % (0-10); Hypochromia Slight; Lymphocytes 8 % (20-55); Macrocytosis Slight; Platelet Estimate Decreased; Total Cells Counted 100
[2022-06-14] MEDS: INSULIN LISPRO 100 UNIT/ML SUBCUT SCH ×4 (07:21→20:58)
[2022-06-14] MEDS: ATORVASTATIN 40 MG TABLET PO SCH (09:42)
[2022-06-14] MEDS: hydrALAZINE 25 MG TABLET PO SCH ×3 (09:42→20:57)
[2022-06-14] MEDS: VALSARTAN 160 MG TABLET PO SCH (09:43)
[2022-06-14] MEDS: PANTOPRAZOLE 40 MG TABLET PO SCH (09:44)
[2022-06-14] MEDS: FUROSEMIDE 40 MG TABLET PO SCH (09:44)
[2022-06-14] MEDS: METOPROLOL SUCCINATE XL 50 MG TABLET PO SCH (09:44)
[2022-06-14] MEDS: ASPIRIN EC 81 MG TABLET PO SCH (09:44)
[2022-06-14] MEDS: DOCUSATE SODIUM 100 MG CAPSULE PO SCH ×2 (09:45→20:58)
[2022-06-14] MEDS: CLOBETASOL 0.05% CREAM 15 GM TUBE TOP SCH ×2 (09:45→20:58)
[2022-06-14] MEDS: DORZOLAMIDE/TIMOLOL OPH SOLN 10 ML BOTTLE BOTH EYES SCH ×2 (09:46→20:58)
[2022-06-14] MEDS: VANCOMYCIN INJ 1,250 MG in SODIUM CHLORIDE 0.9% 250 ML IV SCH ×2 (09:47→20:59)
[2022-06-14] MEDS: LATANOPROST 0.005% OPH SOLN 2.5 ML BOTTLE BOTH EYES SCH (20:59)
[2022-06-14] MEDS: CYCLOBENZAPRINE 10 MG TABLET PO PRN (21:00)
[2022-06-15 06:27] LABS: Basophils # 0.1 10*3/uL (0.0-0.2); Basophils % 1.1 % (0.0-0.8); Eosinophils # 0.7 10*3/uL (0.0-0.87); Eosinophils % 5.4 % (0.00-10.9); Hematocrit 32.2 VOL% (42.0-52.0); Hemoglobin 9.8 GM/DL (14.0-18.0); Immature Granulocytes % 5.8 %; Immature Granulocytes Absolute 0.74 #; Lymphocytes # 1.8 10*3/uL (1.4-4.0); Lymphocytes % 13.8 % (21.2-54.2); Mean Corpuscular HGB Conc 30.4 GM/DL (32-36); Mean Corpuscular Volume 98.8 FL (87-102); Monocytes # 1.4 10*3/uL (0.11-0.8); Monocytes % 11.2 % (1.7-12.7); NRBC # 0.02 10*3/uL; Neutrophils % 62.7 % (38.7-73.9); Platelet Count 118 T/CUMM (130-400); Red Blood Count 3.26 MC/CUMM (3.8-5.5); Red Cell Distribution Width 20.1 % (9.3-17.3); White Blood Count 12.8 T/CUMM (4-12)
[2022-06-15 06:54] LABS: Albumin 1.7 G/DL (3.4-5.0); Bilirubin,Total 0.4 MG/DL (0.20-1.00); Calcium 8.5 MG/DL (8.5-10.1); Osmolality,Calculated 287.7 MOS/KG (273-304); Total Protein 5.8 G/DL (6.4-8.2)
[2022-06-15] MEDS: INSULIN LISPRO 100 UNIT/ML SUBCUT SCH ×4 (07:30→21:25)
[2022-06-15 07:49] LABS: Eosinophils 6 % (0-10); Lymphocytes 24 % (20-55); Platelet Estimate Adequate; Total Cells Counted 100
[2022-06-15] MEDS: VANCOMYCIN INJ 1,250 MG in SODIUM CHLORIDE 0.9% 250 ML IV SCH ×3 (09:20→21:27)
[2022-06-15] MEDS: PANTOPRAZOLE 40 MG TABLET PO SCH (09:21)
[2022-06-15] MEDS: VALSARTAN 160 MG TABLET PO SCH (09:21)
[2022-06-15] MEDS: DOCUSATE SODIUM 100 MG CAPSULE PO SCH ×2 (09:21→21:25)
[2022-06-15] MEDS: METOPROLOL SUCCINATE XL 50 MG TABLET PO SCH (09:21)
[2022-06-15] MEDS: FUROSEMIDE 40 MG TABLET PO SCH (09:21)
[2022-06-15] MEDS: ATORVASTATIN 40 MG TABLET PO SCH (09:21)
[2022-06-15] MEDS: hydrALAZINE 25 MG TABLET PO SCH ×3 (09:21→21:25)
[2022-06-15] MEDS: ASPIRIN EC 81 MG TABLET PO SCH (09:21)
[2022-06-15] MEDS: CLOBETASOL 0.05% CREAM 15 GM TUBE TOP SCH ×2 (09:33→21:27)
[2022-06-15] MEDS: DORZOLAMIDE/TIMOLOL OPH SOLN 10 ML BOTTLE BOTH EYES SCH ×2 (09:33→21:25)
[2022-06-15] MEDS: LATANOPROST 0.005% OPH SOLN 2.5 ML BOTTLE BOTH EYES SCH (21:27)
[2022-06-15] MEDS: CYCLOBENZAPRINE 10 MG TABLET PO PRN (21:28)
[2022-06-16] MEDS: ALBUMIN 25% 25 GM/100 ML VIAL IV SCH ×3 (01:38→17:08)
[2022-06-16 06:23] LABS: Basophils # 0.1 10*3/uL (0.0-0.2); Basophils % 1.4 % (0.0-0.8); Eosinophils # 0.8 10*3/uL (0.0-0.87); Eosinophils % 9.7 % (0.00-10.9); Hematocrit 31.4 VOL% (42.0-52.0); Hemoglobin 9.4 GM/DL (14.0-18.0); Immature Granulocytes % 3.1 %; Immature Granulocytes Absolute 0.25 #; Lymphocytes # 1.3 10*3/uL (1.4-4.0); Mean Corpuscular HGB Conc 29.9 GM/DL (32-36); Mean Corpuscular Volume 100.3 FL (87-102); Mean Platelet Volume 11.5 FL (9.6-12.0); Monocytes # 1.1 10*3/uL (0.11-0.8); Monocytes % 13.1 % (1.7-12.7); Neutrophils % 56.7 % (38.7-73.9); Platelet Count 143 T/CUMM (130-400); Red Blood Count 3.13 MC/CUMM (3.8-5.5); Red Cell Distribution Width 19.9 % (9.3-17.3)
[2022-06-16 06:46] LABS: Albumin 2.2 G/DL (3.4-5.0); Bilirubin,Total 0.7 MG/DL (0.20-1.00); Calcium 8.4 MG/DL (8.5-10.1); Osmolality,Calculated 294.4 MOS/KG (273-304); Potassium 3.7 MMOL/L (3.5-5.1); Total Protein 6.1 G/DL (6.4-8.2)
[2022-06-16 07:32] LABS: Platelet Estimate Adequate
[2022-06-16] MEDS: INSULIN LISPRO 100 UNIT/ML SUBCUT SCH ×4 (07:46→21:26)
[2022-06-16] MEDS: VALSARTAN 160 MG TABLET PO SCH (09:50)
[2022-06-16] MEDS: PANTOPRAZOLE 40 MG TABLET PO SCH (09:50)
[2022-06-16] MEDS: ATORVASTATIN 40 MG TABLET PO SCH (09:50)
[2022-06-16] MEDS: METOPROLOL SUCCINATE XL 50 MG TABLET PO SCH (09:51)
[2022-06-16] MEDS: ASPIRIN EC 81 MG TABLET PO SCH (09:51)
[2022-06-16] MEDS: FUROSEMIDE 40 MG TABLET PO SCH (09:51)
[2022-06-16] MEDS: hydrALAZINE 25 MG TABLET PO SCH ×3 (09:51→21:11)
[2022-06-16] MEDS: SKIN HEALING OINT (AQUAPHOR) 50 GM TUBE TOP SCH (09:51)
[2022-06-16] MEDS: DOCUSATE SODIUM 100 MG CAPSULE PO SCH ×2 (09:51→21:11)
[2022-06-16] MEDS: CLOBETASOL 0.05% CREAM 15 GM TUBE TOP SCH ×2 (09:51→21:11)
[2022-06-16] MEDS: DORZOLAMIDE/TIMOLOL OPH SOLN 10 ML BOTTLE BOTH EYES SCH ×2 (09:53→21:11)
[2022-06-16] MEDS: hydrOXYzine HCL 25 MG TABLET PO PRN ×2 (10:42→21:12)
[2022-06-16] MEDS: VANCOMYCIN INJ 1,250 MG in SODIUM CHLORIDE 0.9% 250 ML IV SCH (12:27)
[2022-06-16] MEDS: LATANOPROST 0.005% OPH SOLN 2.5 ML BOTTLE BOTH EYES SCH (21:11)
[2022-06-16] MEDS: GABAPENTIN 100 MG CAPSULE PO PRN (21:12)
[2022-06-16] MEDS: CYCLOBENZAPRINE 10 MG TABLET PO PRN (21:13)
[2022-06-17] MEDS: ALBUMIN 25% 25 GM/100 ML VIAL IV SCH ×3 (00:07→16:38)
[2022-06-17] MEDS: VANCOMYCIN INJ 1,250 MG in SODIUM CHLORIDE 0.9% 250 ML IV SCH (03:26)
[2022-06-17] MEDS: INSULIN LISPRO 100 UNIT/ML SUBCUT SCH ×4 (08:18→21:33)
[2022-06-17 08:45] LABS: Albumin 2.5 G/DL (3.4-5.0); Bilirubin,Direct 0.21 MG/DL (0.0-0.20); Bilirubin,Indirect 0.6 MG/DL (0.0-1.0); Bilirubin,Total 0.8 MG/DL (0.20-1.00); Total Protein 5.6 G/DL (6.4-8.2)
[2022-06-17] MEDS: METOPROLOL SUCCINATE XL 50 MG TABLET PO SCH (09:38)
[2022-06-17] MEDS: hydrALAZINE 25 MG TABLET PO SCH ×3 (09:38→21:33)
[2022-06-17] MEDS: DOCUSATE SODIUM 100 MG CAPSULE PO SCH ×2 (09:38→21:33)
[2022-06-17] MEDS: ASPIRIN EC 81 MG TABLET PO SCH (09:38)
[2022-06-17] MEDS: VALSARTAN 160 MG TABLET PO SCH (09:38)
[2022-06-17] MEDS: PANTOPRAZOLE 40 MG TABLET PO SCH (09:38)
[2022-06-17] MEDS: DORZOLAMIDE/TIMOLOL OPH SOLN 10 ML BOTTLE BOTH EYES SCH ×2 (09:39→21:33)
[2022-06-17] MEDS: CLOBETASOL 0.05% CREAM 15 GM TUBE TOP SCH ×2 (09:39→21:35)
[2022-06-17] MEDS: FUROSEMIDE 40 MG TABLET PO SCH (09:39)
[2022-06-17] MEDS: SKIN HEALING OINT (AQUAPHOR) 50 GM TUBE TOP SCH (09:39)
[2022-06-17] MEDS: hydrOXYzine HCL 25 MG TABLET PO PRN (21:35)
[2022-06-17] MEDS: LATANOPROST 0.005% OPH SOLN 2.5 ML BOTTLE BOTH EYES SCH (21:35)
[2022-06-17] MEDS: ACETAMINOPHEN 325 MG TABLET PO PRN (21:36)
[2022-06-17] MEDS: CYCLOBENZAPRINE 10 MG TABLET PO PRN (21:37)
[2022-06-17] MEDS: GABAPENTIN 100 MG CAPSULE PO PRN (21:42)
[2022-06-18] MEDS: ALBUMIN 25% 25 GM/100 ML VIAL IV SCH ×2 (00:19→16:05)
[2022-06-18 07:13] LABS: Calcium 8.6 MG/DL (8.5-10.1); Potassium 3.6 MMOL/L (3.5-5.1)
[2022-06-18] MEDS ORDERED: SODIUM CHLORIDE 0.9% 500 ML IV ONE (08:03)
[2022-06-18] MEDS: INSULIN LISPRO 100 UNIT/ML SUBCUT SCH ×4 (09:15→21:06)
[2022-06-18] MEDS: ASPIRIN EC 81 MG TABLET PO SCH (09:17)
[2022-06-18] MEDS: FUROSEMIDE 40 MG TABLET PO SCH (09:17)
[2022-06-18] MEDS: VALSARTAN 160 MG TABLET PO SCH (09:17)
[2022-06-18] MEDS: hydrALAZINE 25 MG TABLET PO SCH ×3 (09:17→21:07)
[2022-06-18] MEDS: METOPROLOL SUCCINATE XL 50 MG TABLET PO SCH (09:17)
[2022-06-18] MEDS: DOCUSATE SODIUM 100 MG CAPSULE PO SCH ×2 (09:17→21:07)
[2022-06-18] MEDS: PANTOPRAZOLE 40 MG TABLET PO SCH (09:17)
[2022-06-18] MEDS: DORZOLAMIDE/TIMOLOL OPH SOLN 10 ML BOTTLE BOTH EYES SCH ×2 (09:18→21:07)
[2022-06-18] MEDS: SKIN HEALING OINT (AQUAPHOR) 50 GM TUBE TOP SCH (09:18)
[2022-06-18] MEDS: CLOBETASOL 0.05% CREAM 15 GM TUBE TOP SCH ×2 (09:19→21:07)
[2022-06-18 14:03] LABS: Calcium 8.6 MG/DL (8.5-10.1); Osmolality,Calculated 296.3 MOS/KG (273-304); Potassium 4.1 MMOL/L (3.5-5.1)
[2022-06-18] MEDS: LATANOPROST 0.005% OPH SOLN 2.5 ML BOTTLE BOTH EYES SCH (21:07)
[2022-06-18] MEDS: hydrOXYzine HCL 25 MG TABLET PO PRN (21:08)
[2022-06-18] MEDS: ACETAMINOPHEN 325 MG TABLET PO PRN (21:08)
[2022-06-18] MEDS: GABAPENTIN 100 MG CAPSULE PO PRN (21:09)
[2022-06-19 07:08] LABS: Basophils # 0.1 10*3/uL (0.0-0.2); Basophils % 2.2 % (0.0-0.8); Eosinophils # 0.5 10*3/uL (0.0-0.87); Eosinophils % 7.8 % (0.00-10.9); Hematocrit 29.7 VOL% (42.0-52.0); Hemoglobin 8.7 GM/DL (14.0-18.0); Immature Granulocytes % 1.7 %; Lymphocytes # 0.7 10*3/uL (1.4-4.0); Lymphocytes % 11.9 % (21.2-54.2); Mean Corpuscular HGB Conc 29.3 GM/DL (32-36); Mean Corpuscular Volume 102.1 FL (87-102); Mean Platelet Volume 10.6 FL (9.6-12.0); Monocytes # 0.7 10*3/uL (0.11-0.8); Monocytes % 11.1 % (1.7-12.7); Neutrophils % 65.3 % (38.7-73.9); Platelet Count 196 T/CUMM (130-400); Red Blood Count 2.91 MC/CUMM (3.8-5.5); Red Cell Distribution Width 19.9 % (9.3-17.3); White Blood Count 5.9 T/CUMM (4-12)
[2022-06-19 07:26] LABS: Albumin 2.9 G/DL (3.4-5.0); Bilirubin,Total 0.5 MG/DL (0.20-1.00); Calcium 8.9 MG/DL (8.5-10.1); Osmolality,Calculated 300.9 MOS/KG (273-304); Potassium 3.6 MMOL/L (3.5-5.1); Total Protein 6.1 G/DL (6.4-8.2)
[2022-06-19] MEDS: INSULIN LISPRO 100 UNIT/ML SUBCUT SCH ×4 (08:00→21:28)
[2022-06-19] MEDS: ASPIRIN EC 81 MG TABLET PO SCH (08:11)
[2022-06-19] MEDS: PANTOPRAZOLE 40 MG TABLET PO SCH (08:11)
[2022-06-19] MEDS: VALSARTAN 160 MG TABLET PO SCH (08:11)
[2022-06-19] MEDS: ALBUMIN 25% 25 GM/100 ML VIAL IV SCH ×4 (08:12→21:28)
[2022-06-19] MEDS: hydrALAZINE 25 MG TABLET PO SCH ×3 (08:12→20:35)
[2022-06-19] MEDS: FUROSEMIDE 40 MG TABLET PO SCH (08:12)
[2022-06-19] MEDS: METOPROLOL SUCCINATE XL 50 MG TABLET PO SCH (08:12)
[2022-06-19] MEDS: DOCUSATE SODIUM 100 MG CAPSULE PO SCH ×2 (08:12→20:35)
[2022-06-19] MEDS: SKIN HEALING OINT (AQUAPHOR) 50 GM TUBE TOP SCH (08:13)
[2022-06-19] MEDS: DORZOLAMIDE/TIMOLOL OPH SOLN 10 ML BOTTLE BOTH EYES SCH ×2 (08:13→20:36)
[2022-06-19] MEDS: CLOBETASOL 0.05% CREAM 15 GM TUBE TOP SCH ×2 (09:24→20:36)
[2022-06-19] MEDS: SODIUM CHLORIDE 0.9% 1,000 ML IV SCH (11:09)
[2022-06-19] MEDS: LATANOPROST 0.005% OPH SOLN 2.5 ML BOTTLE BOTH EYES SCH (20:37)
[2022-06-19] MEDS: SIMETHICONE CHEW 125 MG TABLET PO PRN (23:10)
[2022-06-20] MEDS: ALBUMIN 25% 25 GM/100 ML VIAL IV SCH ×3 (00:17→17:55)
[2022-06-20 06:11] LABS: Basophils # 0.1 10*3/uL (0.0-0.2); Basophils % 1.2 % (0.0-0.8); Eosinophils # 0.3 10*3/uL (0.0-0.87); Eosinophils % 3.5 % (0.00-10.9); Hematocrit 28.9 VOL% (42.0-52.0); Hemoglobin 8.4 GM/DL (14.0-18.0); Immature Granulocytes % 2.5 %; Immature Granulocytes Absolute 0.24 #; Lymphocytes # 0.7 10*3/uL (1.4-4.0); Lymphocytes % 7.4 % (21.2-54.2); Mean Corpuscular HGB Conc 29.1 GM/DL (32-36); Mean Corpuscular Volume 103.2 FL (87-102); Mean Platelet Volume 11.3 FL (9.6-12.0); Monocytes # 0.9 10*3/uL (0.11-0.8); Monocytes % 9.3 % (1.7-12.7); NRBC # 0.03 10*3/uL; Neutrophils % 76.1 % (38.7-73.9); Platelet Count 153 T/CUMM (130-400); Red Cell Distribution Width 19.7 % (9.3-17.3); White Blood Count 9.5 T/CUMM (4-12)
[2022-06-20 06:33] LABS: Albumin 3.5 G/DL (3.4-5.0); Bilirubin,Total 0.6 MG/DL (0.20-1.00); Calcium 8.3 MG/DL (8.5-10.1); Osmolality,Calculated 298.9 MOS/KG (273-304); Potassium 3.6 MMOL/L (3.5-5.1); Total Protein 6.5 G/DL (6.4-8.2)
[2022-06-20] MEDS: INSULIN LISPRO 100 UNIT/ML SUBCUT SCH ×4 (07:22→21:50)
[2022-06-20] MEDS: hydrALAZINE 25 MG TABLET PO SCH ×3 (08:30→21:50)
[2022-06-20] MEDS: ASPIRIN EC 81 MG TABLET PO SCH (08:33)
[2022-06-20] MEDS: VALSARTAN 160 MG TABLET PO SCH (08:33)
[2022-06-20] MEDS: METOPROLOL SUCCINATE XL 50 MG TABLET PO SCH (08:33)
[2022-06-20] MEDS: DOCUSATE SODIUM 100 MG CAPSULE PO SCH ×2 (08:33→21:50)
[2022-06-20] MEDS: PANTOPRAZOLE 40 MG TABLET PO SCH (08:33)
[2022-06-20] MEDS ORDERED: FUROSEMIDE 20 MG TABLET PO SCH (09:00)
[2022-06-20] MEDS: CLOBETASOL 0.05% CREAM 15 GM TUBE TOP SCH ×2 (11:14→21:50)
[2022-06-20] MEDS: SKIN HEALING OINT (AQUAPHOR) 50 GM TUBE TOP SCH (11:14)
[2022-06-20 11:48] LABS: Calcium 8.8 MG/DL (8.5-10.1)
[2022-06-20] MEDS: DORZOLAMIDE/TIMOLOL OPH SOLN 10 ML BOTTLE BOTH EYES SCH ×2 (12:45→21:50)
[2022-06-20] MEDS: SODIUM CHLORIDE 0.9% 1,000 ML IV SCH (17:17)
[2022-06-20 18:20] LABS: Bilirubin,Urine Negative (Negative); Glucose,Urine (UA) Negative (Negative); Hyaline Casts,Urine 9 /LPF (0-3); Ketones,Urine Negative (Negative); Mucus,Urine Occasional /LPF (Occasional); Nitrite,Urine Negative (Negative); Protein,Urine 100 mg/dL (Negative); RBC,Urine 15-20 /HPF (0-4); Urine Appearance Clear (Clear); Urine Color Yellow (Yellow); Urine Specific Gravity > 1.030 (1.001-1.035); Urine pH 5.5 (4.5-8.0)
[2022-06-20 18:21] LABS: Blood, Urine Negative (Negative)
[2022-06-20] MEDS: SODIUM CHLORIDE 0.45% 1,000 ML IV SCH (18:58)
[2022-06-20 19:35] LABS: Albumin 3.1 G/DL (3.4-5.0); Bilirubin,Total 0.4 MG/DL (0.20-1.00); Calcium 8.5 MG/DL (8.5-10.1); Osmolality,Calculated 296.3 MOS/KG (273-304); Potassium 3.7 MMOL/L (3.5-5.1); Total Protein 6.5 G/DL (6.4-8.2)
[2022-06-20] MEDS: LATANOPROST 0.005% OPH SOLN 2.5 ML BOTTLE BOTH EYES SCH (21:50)
[2022-06-21] MEDS: ALBUMIN 25% 25 GM/100 ML VIAL IV SCH ×3 (00:30→18:30)
[2022-06-21] MEDS: SODIUM CHLORIDE 0.9% 1,000 ML IV SCH (08:24)
[2022-06-21] MEDS: INSULIN LISPRO 100 UNIT/ML SUBCUT SCH ×3 (08:26→17:00)
[2022-06-21] MEDS: hydrALAZINE 25 MG TABLET PO SCH ×2 (08:26→16:00)
[2022-06-21] MEDS: VALSARTAN 160 MG TABLET PO SCH (08:27)
[2022-06-21] MEDS: METOPROLOL SUCCINATE XL 50 MG TABLET PO SCH (08:27)
[2022-06-21] MEDS: PANTOPRAZOLE 40 MG TABLET PO SCH (10:46)
[2022-06-21] MEDS: DOCUSATE SODIUM 100 MG CAPSULE PO SCH (10:47)
[2022-06-21] MEDS: SKIN HEALING OINT (AQUAPHOR) 50 GM TUBE TOP SCH (10:47)
[2022-06-21] MEDS: ASPIRIN EC 81 MG TABLET PO SCH (10:47)
[2022-06-21] MEDS: DORZOLAMIDE/TIMOLOL OPH SOLN 10 ML BOTTLE BOTH EYES SCH (10:48)
[2022-06-21] MEDS: SODIUM CHLORIDE 0.45% 1,000 ML IV SCH (10:48)
[2022-06-21] MEDS: CLOBETASOL 0.05% CREAM 15 GM TUBE TOP SCH (11:02)
[2022-06-22] MEDS: hydrALAZINE 25 MG TABLET PO SCH ×4 (00:57→20:51)
[2022-06-22] MEDS: DOCUSATE SODIUM 100 MG CAPSULE PO SCH ×3 (00:57→20:51)
[2022-06-22] MEDS: DORZOLAMIDE/TIMOLOL OPH SOLN 10 ML BOTTLE BOTH EYES SCH ×3 (00:58→20:51)
[2022-06-22] MEDS: LATANOPROST 0.005% OPH SOLN 2.5 ML BOTTLE BOTH EYES SCH ×2 (00:59→20:52)
[2022-06-22] MEDS: CLOBETASOL 0.05% CREAM 15 GM TUBE TOP SCH ×3 (01:00→20:51)
[2022-06-22] MEDS: SODIUM CHLORIDE 0.9% 1,000 ML IV SCH (01:01)
[2022-06-22] MEDS: INSULIN LISPRO 100 UNIT/ML SUBCUT SCH ×5 (01:02→20:52)
[2022-06-22] MEDS: ALBUMIN 25% 25 GM/100 ML VIAL IV SCH ×3 (03:46→17:14)
[2022-06-22 07:19] LABS: Basophils # 0.1 10*3/uL (0.0-0.2); Basophils % 1.7 % (0.0-0.8); Eosinophils # 0.6 10*3/uL (0.0-0.87); Eosinophils % 7.4 % (0.00-10.9); Hematocrit 25.1 VOL% (42.0-52.0); Hemoglobin 7.2 GM/DL (14.0-18.0); Immature Granulocytes % 3.4 %; Immature Granulocytes Absolute 0.28 #; Lymphocytes # 1.4 10*3/uL (1.4-4.0); Lymphocytes % 17.4 % (21.2-54.2); Mean Corpuscular HGB Conc 28.7 GM/DL (32-36); Mean Corpuscular Volume 103.7 FL (87-102); Mean Platelet Volume 10.7 FL (9.6-12.0); Monocytes # 1.1 10*3/uL (0.11-0.8); Monocytes % 13.5 % (1.7-12.7); Neutrophils % 56.6 % (38.7-73.9); Platelet Count 242 T/CUMM (130-400); Red Blood Count 2.42 MC/CUMM (3.8-5.5); Red Cell Distribution Width 20.3 % (9.3-17.3); White Blood Count 8.2 T/CUMM (4-12)
[2022-06-22 07:34] LABS: Calcium 8.5 MG/DL (8.5-10.1); Osmolality,Calculated 293.3 MOS/KG (273-304); Potassium 3.5 MMOL/L (3.5-5.1)
[2022-06-22] MEDS: ASPIRIN EC 81 MG TABLET PO SCH (10:22)
[2022-06-22] MEDS: PANTOPRAZOLE 40 MG TABLET PO SCH (10:22)
[2022-06-22] MEDS: SKIN HEALING OINT (AQUAPHOR) 50 GM TUBE TOP SCH (10:23)
[2022-06-22] MEDS: SODIUM CHLORIDE 0.45% 1,000 ML IV SCH ×2 (10:24→11:43)
[2022-06-22] MEDS: VALSARTAN 160 MG TABLET PO SCH (11:43)
[2022-06-22] MEDS: METOPROLOL SUCCINATE XL 50 MG TABLET PO SCH (11:43)
[2022-06-23] MEDS: SODIUM CHLORIDE 0.45% 1,000 ML IV SCH ×2 (01:58→16:23)
[2022-06-23] MEDS: ALBUMIN 25% 25 GM/100 ML VIAL IV SCH ×3 (01:58→17:33)
[2022-06-23 02:35] LABS: Hemoglobin 7.5 GM/DL (14.0-18.0)
[2022-06-23 02:43] LABS: Calcium 8.4 MG/DL (8.5-10.1); Osmolality,Calculated 298.9 MOS/KG (273-304); Potassium 3.6 MMOL/L (3.5-5.1)
[2022-06-23] MEDS: INSULIN LISPRO 100 UNIT/ML SUBCUT SCH ×4 (06:44→20:37)
[2022-06-23] MEDS: DOCUSATE SODIUM 100 MG CAPSULE PO SCH ×2 (09:42→20:37)
[2022-06-23] MEDS: hydrALAZINE 25 MG TABLET PO SCH ×3 (09:42→21:00)
[2022-06-23] MEDS: METOPROLOL SUCCINATE XL 50 MG TABLET PO SCH (09:42)
[2022-06-23] MEDS: VALSARTAN 160 MG TABLET PO SCH (09:43)
[2022-06-23] MEDS: SKIN HEALING OINT (AQUAPHOR) 50 GM TUBE TOP SCH (09:43)
[2022-06-23] MEDS: PANTOPRAZOLE 40 MG TABLET PO SCH (09:43)
[2022-06-23] MEDS: ASPIRIN EC 81 MG TABLET PO SCH (09:43)
[2022-06-23] MEDS: CLOBETASOL 0.05% CREAM 15 GM TUBE TOP SCH ×2 (09:44→20:33)
[2022-06-23] MEDS: DORZOLAMIDE/TIMOLOL OPH SOLN 10 ML BOTTLE BOTH EYES SCH ×2 (09:44→20:33)
[2022-06-23] MEDS: LATANOPROST 0.005% OPH SOLN 2.5 ML BOTTLE BOTH EYES SCH (21:01)
[2022-06-24] MEDS: ALBUMIN 25% 25 GM/100 ML VIAL IV SCH ×2 (02:22→10:04)
[2022-06-24] MEDS: SODIUM CHLORIDE 0.45% 1,000 ML IV SCH ×2 (05:34→20:21)
[2022-06-24 06:13] LABS: Osmolality,Calculated 296.1 MOS/KG (273-304); Potassium 3.7 MMOL/L (3.5-5.1)
[2022-06-24] MEDS: hydrALAZINE 25 MG TABLET PO SCH ×3 (08:42→21:24)
[2022-06-24] MEDS: VALSARTAN 160 MG TABLET PO SCH (08:43)
[2022-06-24] MEDS: INSULIN LISPRO 100 UNIT/ML SUBCUT SCH ×4 (08:44→21:24)
[2022-06-24] MEDS: DOCUSATE SODIUM 100 MG CAPSULE PO SCH ×2 (08:44→21:24)
[2022-06-24] MEDS: PANTOPRAZOLE 40 MG TABLET PO SCH (08:45)
[2022-06-24] MEDS: ASPIRIN EC 81 MG TABLET PO SCH (08:45)
[2022-06-24] MEDS: DORZOLAMIDE/TIMOLOL OPH SOLN 10 ML BOTTLE BOTH EYES SCH ×2 (08:46→21:24)
[2022-06-24] MEDS: CLOBETASOL 0.05% CREAM 15 GM TUBE TOP SCH ×2 (08:46→21:24)
[2022-06-24] MEDS: SKIN HEALING OINT (AQUAPHOR) 50 GM TUBE TOP SCH (08:46)
[2022-06-24] MEDS: METOPROLOL SUCCINATE XL 50 MG TABLET PO SCH (08:47)
[2022-06-24] MEDS: LATANOPROST 0.005% OPH SOLN 2.5 ML BOTTLE BOTH EYES SCH (21:24)
[2022-06-25] MEDS: ACETAMINOPHEN 325 MG TABLET PO PRN (01:26)
[2022-06-25] MEDS: SODIUM CHLORIDE 0.45% 1,000 ML IV SCH ×2 (04:49→06:47)
[2022-06-25 06:37] LABS: Calcium 8.7 MG/DL (8.5-10.1); Osmolality,Calculated 295.1 MOS/KG (273-304); Potassium 3.7 MMOL/L (3.5-5.1)
[2022-06-25 06:43] LABS: Basophils # 0.1 10*3/uL (0.0-0.2); Basophils % 1.7 % (0.0-0.8); Eosinophils # 0.5 10*3/uL (0.0-0.87); Eosinophils % 5.9 % (0.00-10.9); Hematocrit 27.8 VOL% (42.0-52.0); Immature Granulocytes % 3.4 %; Immature Granulocytes Absolute 0.29 #; Lymphocytes % 11.6 % (21.2-54.2); Mean Corpuscular HGB Conc 28.8 GM/DL (32-36); Mean Corpuscular Volume 104.9 FL (87-102); Mean Platelet Volume 10.4 FL (9.6-12.0); Monocytes # 1.1 10*3/uL (0.11-0.8); Monocytes % 13.3 % (1.7-12.7); Neutrophils % 64.1 % (38.7-73.9); Red Blood Count 2.65 MC/CUMM (3.8-5.5); Red Cell Distribution Width 20.8 % (9.3-17.3); White Blood Count 8.5 T/CUMM (4-12)
[2022-06-25 06:45] LABS: Platelet Count 190 T/CUMM (130-400)
[2022-06-25] MEDS: hydrALAZINE 25 MG TABLET PO SCH ×3 (08:45→20:52)
[2022-06-25] MEDS: METOPROLOL SUCCINATE XL 50 MG TABLET PO SCH (08:45)
[2022-06-25] MEDS: ASPIRIN EC 81 MG TABLET PO SCH (08:46)
[2022-06-25] MEDS: VALSARTAN 160 MG TABLET PO SCH (08:46)
[2022-06-25] MEDS: PANTOPRAZOLE 40 MG TABLET PO SCH (08:46)
[2022-06-25] MEDS: SKIN HEALING OINT (AQUAPHOR) 50 GM TUBE TOP SCH (08:55)
[2022-06-25] MEDS: DORZOLAMIDE/TIMOLOL OPH SOLN 10 ML BOTTLE BOTH EYES SCH ×2 (08:55→22:35)
[2022-06-25] MEDS: DOCUSATE SODIUM 100 MG CAPSULE PO SCH ×2 (08:55→23:49)
[2022-06-25] MEDS: CLOBETASOL 0.05% CREAM 15 GM TUBE TOP SCH ×2 (08:55→23:49)
[2022-06-25] MEDS: INSULIN LISPRO 100 UNIT/ML SUBCUT SCH ×4 (08:56→23:49)
[2022-06-25 16:22] LABS: Arterial Base Excess iSTAT 3 MMOL/L (-2.5-2.5); Arterial Bicarbonate iSTAT 32.8 MMOL/L (20-26); Arterial O2 Saturation iSTAT 98 % (95-100); Arterial PCO2 iSTAT 84 MM HG (35-48); Arterial PO2 iSTAT 140 MM HG (80-95); Arterial Total CO2 iSTAT 35 MMO/L (23-27); Arterial pH iSTAT 7.198 (7.35-7.45)
[2022-06-25 17:16] LABS: Calcium 8.3 MG/DL (8.5-10.1); Osmolality,Calculated 291.7 MOS/KG (273-304); Potassium 3.8 MMOL/L (3.5-5.1)
[2022-06-25] MEDS: LEVOFLOXACIN INJ 750 MG/150 ML PREMIX IV SCH (17:39)
[2022-06-25] MEDS: ALBUTEROL/IPRATROPIUM 3 ML NEB RESP TX SCH ×2 (19:26→23:07)
[2022-06-25 20:48] LABS: ABG Base Excess 2.9 MMOL/L (-2.5-2.5); ABG Oxygen Saturation 97.5 % (95-100); ABG PH 7.215 (7.35-7.45); ABG TCO2 30.9 MMOL/L (23-27)
[2022-06-25 20:51] LABS: ABG PCO2 80.4 MM HG (35-48)
[2022-06-25] MEDS: LATANOPROST 0.005% OPH SOLN 2.5 ML BOTTLE BOTH EYES SCH (22:34)
[2022-06-26] MEDS: SODIUM CHLORIDE 0.45% 1,000 ML IV SCH (02:00)
[2022-06-26] MEDS: ALBUTEROL/IPRATROPIUM 3 ML NEB RESP TX SCH ×5 (02:10→19:14)
[2022-06-26 04:16] LABS: ABG Base Excess 3.9 MMOL/L (-2.5-2.5); ABG Oxygen Saturation 97.9 % (95-100); ABG PH 7.262 (7.35-7.45); ABG TCO2 30.8 MMOL/L (23-27)
[2022-06-26 04:20] LABS: ABG PCO2 72.1 MM HG (35-48)
[2022-06-26 05:23] LABS: Calcium 8.7 MG/DL (8.5-10.1); Osmolality,Calculated 296.3 MOS/KG (273-304); Potassium 4.2 MMOL/L (3.5-5.1)
[2022-06-26] MEDS: VALSARTAN 160 MG TABLET PO SCH (08:54)
[2022-06-26] MEDS: PANTOPRAZOLE 40 MG TABLET PO SCH (08:55)
[2022-06-26] MEDS: DOCUSATE SODIUM 100 MG CAPSULE PO SCH ×2 (08:55→20:53)
[2022-06-26] MEDS: METOPROLOL SUCCINATE XL 50 MG TABLET PO SCH (08:55)
[2022-06-26] MEDS: ASPIRIN EC 81 MG TABLET PO SCH (08:55)
[2022-06-26] MEDS: hydrALAZINE 25 MG TABLET PO SCH ×3 (08:55→20:53)
[2022-06-26] MEDS: INSULIN LISPRO 100 UNIT/ML SUBCUT SCH ×4 (09:08→20:54)
[2022-06-26] MEDS: DEXTROSE 5% 1,000 ML IV SCH ×2 (10:14→23:40)
[2022-06-26] MEDS: SKIN HEALING OINT (AQUAPHOR) 50 GM TUBE TOP SCH (10:14)
[2022-06-26] MEDS: CLOBETASOL 0.05% CREAM 15 GM TUBE TOP SCH ×2 (10:54→20:52)
[2022-06-26] MEDS: DORZOLAMIDE/TIMOLOL OPH SOLN 10 ML BOTTLE BOTH EYES SCH ×2 (10:54→20:52)
[2022-06-26] MEDS: HEPARIN 5,000 UNIT/1 ML VIAL SUBCUT SCH ×2 (13:17→19:31)
[2022-06-26] MEDS: methylPREDNISolone SOD SUC 40 MG/1 ML VIAL IV SCH ×2 (13:17→19:32)
[2022-06-26 14:29] LABS: Arterial Base Excess iSTAT 5 MMOL/L (-2.5-2.5); Arterial Bicarbonate iSTAT 32.5 MMOL/L (20-26); Arterial O2 Saturation iSTAT 96 % (95-100); Arterial PCO2 iSTAT 67 MM HG (35-48); Arterial PO2 iSTAT 91 MM HG (80-95); Arterial Total CO2 iSTAT 34 MMO/L (23-27); Arterial pH iSTAT 7.294 (7.35-7.45)
[2022-06-26] MEDS ORDERED: SODIUM CHLORIDE 0.45% 500 ML IV ONE (14:31)
[2022-06-26] MEDS: LEVOFLOXACIN INJ 750 MG/150 ML PREMIX IV SCH (17:23)
[2022-06-26] MEDS ORDERED: SODIUM CHLORIDE 0.45% 250 ML IV ONE (18:17)
[2022-06-26] MEDS: LATANOPROST 0.005% OPH SOLN 2.5 ML BOTTLE BOTH EYES SCH (20:52)
[2022-06-27] MEDS: ALBUTEROL/IPRATROPIUM 3 ML NEB RESP TX SCH ×7 (00:51→23:48)
[2022-06-27] MEDS: HEPARIN 5,000 UNIT/1 ML VIAL SUBCUT SCH ×3 (03:13→21:24)
[2022-06-27] MEDS: methylPREDNISolone SOD SUC 40 MG/1 ML VIAL IV SCH ×3 (03:14→20:33)
[2022-06-27 04:08] LABS: Arterial Base Excess iSTAT 5 MMOL/L (-2.5-2.5); Arterial Bicarbonate iSTAT 32.8 MMOL/L (20-26); Arterial O2 Saturation iSTAT 95 % (95-100); Arterial PCO2 iSTAT 64 MM HG (35-48); Arterial PO2 iSTAT 84 MM HG (80-95); Arterial Total CO2 iSTAT 35 MMO/L (23-27); Arterial pH iSTAT 7.316 (7.35-7.45)
[2022-06-27 04:19] LABS: Basophils % 0.2 % (0.0-0.8); Eosinophils % 0.1 % (0.00-10.9); Hematocrit 27.4 VOL% (42.0-52.0); Hemoglobin 8.1 GM/DL (14.0-18.0); Immature Granulocytes % 1.4 %; Immature Granulocytes Absolute 0.13 #; Lymphocytes # 0.9 10*3/uL (1.4-4.0); Lymphocytes % 9.8 % (21.2-54.2); Mean Corpuscular HGB Conc 29.6 GM/DL (32-36); Mean Corpuscular Volume 100.4 FL (87-102); Mean Platelet Volume 12.8 FL (9.6-12.0); Monocytes # 0.5 10*3/uL (0.11-0.8); NRBC # 0.03 10*3/uL; Neutrophils % 83.5 % (38.7-73.9); Platelet Count 100 T/CUMM (130-400); Red Blood Count 2.73 MC/CUMM (3.8-5.5); Red Cell Distribution Width 20.8 % (9.3-17.3)
[2022-06-27 04:44] LABS: Calcium 8.8 MG/DL (8.5-10.1); Osmolality,Calculated 295.6 MOS/KG (273-304); Potassium 4.7 MMOL/L (3.5-5.1)
[2022-06-27 04:47] LABS: Band Neutrophils 1 % (0-10); Lymphocytes 5 % (20-55); Platelet Estimate Decreased; Total Cells Counted 100
[2022-06-27] MEDS: ASPIRIN EC 81 MG TABLET PO SCH (08:29)
[2022-06-27] MEDS: hydrALAZINE 25 MG TABLET PO SCH ×3 (08:29→20:31)
[2022-06-27] MEDS: VALSARTAN 160 MG TABLET PO SCH (08:29)
[2022-06-27] MEDS: INSULIN LISPRO 100 UNIT/ML SUBCUT SCH ×4 (08:29→20:33)
[2022-06-27] MEDS: PANTOPRAZOLE 40 MG TABLET PO SCH (08:29)
[2022-06-27] MEDS: DOCUSATE SODIUM 100 MG CAPSULE PO SCH ×2 (08:29→20:31)
[2022-06-27] MEDS: SKIN HEALING OINT (AQUAPHOR) 50 GM TUBE TOP SCH (08:57)
[2022-06-27] MEDS: DORZOLAMIDE/TIMOLOL OPH SOLN 10 ML BOTTLE BOTH EYES SCH ×2 (08:57→20:32)
[2022-06-27] MEDS: CLOBETASOL 0.05% CREAM 15 GM TUBE TOP SCH ×2 (08:57→20:32)
[2022-06-27] MEDS: METOPROLOL SUCCINATE XL 50 MG TABLET PO SCH (13:08)
[2022-06-27] MEDS: DEXTROSE 5% 1,000 ML IV SCH ×2 (14:18→14:30)
[2022-06-27] MEDS: SKIN HEALING OINT (AQUAPHOR) 50 GM TUBE TOP PRN (14:45)
[2022-06-27] MEDS: ZINC OXIDE PASTE 113 GM TUBE TOP PRN (14:46)
[2022-06-27] MEDS: LEVOFLOXACIN INJ 750 MG/150 ML PREMIX IV SCH (17:39)
[2022-06-27] MEDS: LATANOPROST 0.005% OPH SOLN 2.5 ML BOTTLE BOTH EYES SCH (20:32)
[2022-06-28] MEDS: hydrALAZINE 20 MG/1 ML VIAL IV PRN ×4 (02:13→17:25)
[2022-06-28] MEDS: methylPREDNISolone SOD SUC 40 MG/1 ML VIAL IV SCH ×3 (03:23→21:00)
[2022-06-28] MEDS: ALBUTEROL/IPRATROPIUM 3 ML NEB RESP TX SCH ×6 (03:49→23:00)
[2022-06-28 04:16] LABS: Basophils % 0.1 % (0.0-0.8); Hematocrit 25.9 VOL% (42.0-52.0); Hemoglobin 7.6 GM/DL (14.0-18.0); Immature Granulocytes % 3.9 %; Immature Granulocytes Absolute 0.34 #; Lymphocytes % 11.2 % (21.2-54.2); Mean Corpuscular HGB Conc 29.3 GM/DL (32-36); Mean Corpuscular Volume 100.8 FL (87-102); Mean Platelet Volume 11.3 FL (9.6-12.0); Monocytes # 0.6 10*3/uL (0.11-0.8); Monocytes % 7.1 % (1.7-12.7); NRBC # 0.05 10*3/uL; Neutrophils % 77.7 % (38.7-73.9); Platelet Count 121 T/CUMM (130-400); Red Blood Count 2.57 MC/CUMM (3.8-5.5); Red Cell Distribution Width 20.8 % (9.3-17.3); White Blood Count 8.8 T/CUMM (4-12)
[2022-06-28 04:28] LABS: Calcium 8.7 MG/DL (8.5-10.1); Osmolality,Calculated 295.4 MOS/KG (273-304); Potassium 4.5 MMOL/L (3.5-5.1)
[2022-06-28 04:41] LABS: Lymphocytes 12 % (20-55); Nucleated Red Blood Cells 2 /100 WBC (0-5); Total Cells Counted 100
[2022-06-28 04:42] LABS: Hypochromia Slight; Macrocytosis 1+; Platelet Estimate Adequate
[2022-06-28] MEDS: HEPARIN 5,000 UNIT/1 ML VIAL SUBCUT SCH ×3 (05:53→21:05)
[2022-06-28] MEDS: DEXTROSE 5% 1,000 ML IV SCH (05:56)
[2022-06-28] MEDS: INSULIN LISPRO 100 UNIT/ML SUBCUT SCH ×4 (08:27→21:12)
[2022-06-28] MEDS: VALSARTAN 160 MG TABLET PO SCH (08:27)
[2022-06-28] MEDS: DOCUSATE SODIUM 100 MG CAPSULE PO SCH ×2 (08:27→21:01)
[2022-06-28] MEDS: PANTOPRAZOLE 40 MG TABLET PO SCH (08:27)
[2022-06-28] MEDS: DORZOLAMIDE/TIMOLOL OPH SOLN 10 ML BOTTLE BOTH EYES SCH ×2 (08:28→21:03)
[2022-06-28] MEDS: ASPIRIN EC 81 MG TABLET PO SCH (08:28)
[2022-06-28] MEDS: SKIN HEALING OINT (AQUAPHOR) 50 GM TUBE TOP SCH (08:28)
[2022-06-28] MEDS: hydrALAZINE 25 MG TABLET PO SCH ×3 (08:28→21:01)
[2022-06-28] MEDS: METOPROLOL SUCCINATE XL 50 MG TABLET PO SCH (08:28)
[2022-06-28] MEDS: CLOBETASOL 0.05% CREAM 15 GM TUBE TOP SCH ×2 (08:29→21:03)
[2022-06-28] MEDS: LATANOPROST 0.005% OPH SOLN 2.5 ML BOTTLE BOTH EYES SCH (21:03)
[2022-06-29] MEDS: ALBUTEROL/IPRATROPIUM 3 ML NEB RESP TX SCH ×6 (03:40→23:45)
[2022-06-29] MEDS: HEPARIN 5,000 UNIT/1 ML VIAL SUBCUT SCH ×3 (05:30→22:45)
[2022-06-29] MEDS: methylPREDNISolone SOD SUC 40 MG/1 ML VIAL IV SCH ×3 (05:30→21:30)
[2022-06-29] MEDS: INSULIN LISPRO 100 UNIT/ML SUBCUT SCH ×4 (05:55→22:41)
[2022-06-29 05:58] LABS: Basophils % 0.3 % (0.0-0.8); Eosinophils % 0.3 % (0.00-10.9); Hematocrit 26.3 VOL% (42.0-52.0); Immature Granulocytes % 4.2 %; Immature Granulocytes Absolute 0.33 #; Lymphocytes # 1.3 10*3/uL (1.4-4.0); Lymphocytes % 16.1 % (21.2-54.2); Mean Corpuscular HGB Conc 30.4 GM/DL (32-36); Mean Platelet Volume 12.6 FL (9.6-12.0); Monocytes # 0.7 10*3/uL (0.11-0.8); Monocytes % 9.3 % (1.7-12.7); NRBC # 0.07 10*3/uL; Neutrophils % 69.8 % (38.7-73.9); Platelet Count 115 T/CUMM (130-400); Red Blood Count 2.71 MC/CUMM (3.8-5.5); Red Cell Distribution Width 20.7 % (9.3-17.3); White Blood Count 7.9 T/CUMM (4-12)
[2022-06-29 06:12] LABS: Calcium 9.4 MG/DL (8.5-10.1); Osmolality,Calculated 291.8 MOS/KG (273-304); Potassium 4.4 MMOL/L (3.5-5.1)
[2022-06-29 06:19] LABS: Albumin 3.2 G/DL (3.4-5.0); Bilirubin,Direct 0.14 MG/DL (0.0-0.20); Bilirubin,Indirect 0.5 MG/DL (0.0-1.0); Bilirubin,Total 0.6 MG/DL (0.20-1.00); Total Protein 5.9 G/DL (6.4-8.2)
[2022-06-29] MEDS: METOPROLOL SUCCINATE XL 50 MG TABLET PO SCH (10:24)
[2022-06-29] MEDS: ASPIRIN EC 81 MG TABLET PO SCH (10:24)
[2022-06-29] MEDS: DOCUSATE SODIUM 100 MG CAPSULE PO SCH ×2 (10:24→22:41)
[2022-06-29] MEDS: PANTOPRAZOLE 40 MG TABLET PO SCH (10:24)
[2022-06-29] MEDS: CLOBETASOL 0.05% CREAM 15 GM TUBE TOP SCH ×2 (10:25→22:42)
[2022-06-29] MEDS: VALSARTAN 160 MG TABLET PO SCH (10:25)
[2022-06-29] MEDS: hydrALAZINE 25 MG TABLET PO SCH ×3 (10:25→22:41)
[2022-06-29] MEDS: DORZOLAMIDE/TIMOLOL OPH SOLN 10 ML BOTTLE BOTH EYES SCH ×2 (10:26→22:41)
[2022-06-29] MEDS: SKIN HEALING OINT (AQUAPHOR) 50 GM TUBE TOP SCH (10:27)
[2022-06-29] MEDS: LATANOPROST 0.005% OPH SOLN 2.5 ML BOTTLE BOTH EYES SCH (22:42)
[2022-06-30] MEDS: ALBUTEROL/IPRATROPIUM 3 ML NEB RESP TX SCH ×6 (03:45→23:15)
[2022-06-30] MEDS: methylPREDNISolone SOD SUC 40 MG/1 ML VIAL IV SCH ×3 (03:50→20:50)
[2022-06-30] MEDS: HEPARIN 5,000 UNIT/1 ML VIAL SUBCUT SCH ×3 (05:55→22:18)
[2022-06-30] MEDS: INSULIN LISPRO 100 UNIT/ML SUBCUT SCH ×4 (08:26→22:21)
[2022-06-30] MEDS: DORZOLAMIDE/TIMOLOL OPH SOLN 10 ML BOTTLE BOTH EYES SCH ×2 (09:26→22:20)
[2022-06-30] MEDS: METOPROLOL SUCCINATE XL 50 MG TABLET PO SCH (09:27)
[2022-06-30] MEDS: VALSARTAN 160 MG TABLET PO SCH (09:28)
[2022-06-30] MEDS: PANTOPRAZOLE 40 MG TABLET PO SCH (09:28)
[2022-06-30] MEDS: hydrALAZINE 25 MG TABLET PO SCH ×3 (09:28→22:20)
[2022-06-30] MEDS: ASPIRIN EC 81 MG TABLET PO SCH (09:28)
[2022-06-30] MEDS: DOCUSATE SODIUM 100 MG CAPSULE PO SCH ×2 (09:29→22:20)
[2022-06-30] MEDS: SKIN HEALING OINT (AQUAPHOR) 50 GM TUBE TOP SCH (09:29)
[2022-06-30] MEDS: CLOBETASOL 0.05% CREAM 15 GM TUBE TOP SCH ×2 (09:29→22:21)
[2022-06-30] MEDS: LATANOPROST 0.005% OPH SOLN 2.5 ML BOTTLE BOTH EYES SCH (22:21)
[2022-07-01] MEDS: ALBUTEROL/IPRATROPIUM 3 ML NEB RESP TX SCH ×5 (03:13→19:57)
[2022-07-01] MEDS: methylPREDNISolone SOD SUC 40 MG/1 ML VIAL IV SCH ×3 (04:50→23:12)
[2022-07-01] MEDS: HEPARIN 5,000 UNIT/1 ML VIAL SUBCUT SCH ×3 (05:13→23:12)
[2022-07-01 05:16] LABS: Basophils % 0.2 % (0.0-0.8); Eosinophils # 0.1 10*3/uL (0.0-0.87); Eosinophils % 0.8 % (0.00-10.9); Hemoglobin 7.7 GM/DL (14.0-18.0); Immature Granulocytes % 6.3 %; Immature Granulocytes Absolute 0.78 #; Lymphocytes # 1.6 10*3/uL (1.4-4.0); Mean Corpuscular HGB Conc 29.6 GM/DL (32-36); Mean Platelet Volume 12.8 FL (9.6-12.0); Monocytes # 1.4 10*3/uL (0.11-0.8); Monocytes % 11.2 % (1.7-12.7); NRBC # 0.05 10*3/uL; Neutrophils % 68.5 % (38.7-73.9); Platelet Count 101 T/CUMM (130-400); Red Cell Distribution Width 20.7 % (9.3-17.3); White Blood Count 12.4 T/CUMM (4-12)
[2022-07-01 05:34] LABS: Calcium 9.2 MG/DL (8.5-10.1); Osmolality,Calculated 290.1 MOS/KG (273-304); Potassium 4.7 MMOL/L (3.5-5.1)
[2022-07-01 05:46] LABS: Lymphocytes 16 % (20-55); Metamyelocytes 1 %; Total Cells Counted 100
[2022-07-01 05:47] LABS: Platelet Estimate Adequate
[2022-07-01] MEDS: INSULIN LISPRO 100 UNIT/ML SUBCUT SCH ×4 (08:19→23:12)
[2022-07-01] MEDS: METOPROLOL SUCCINATE XL 50 MG TABLET PO SCH (09:41)
[2022-07-01] MEDS: VALSARTAN 160 MG TABLET PO SCH (09:41)
[2022-07-01] MEDS: DOCUSATE SODIUM 100 MG CAPSULE PO SCH ×2 (09:41→23:11)
[2022-07-01] MEDS: ASPIRIN EC 81 MG TABLET PO SCH (09:41)
[2022-07-01] MEDS: hydrALAZINE 25 MG TABLET PO SCH ×3 (09:41→23:11)
[2022-07-01] MEDS: SKIN HEALING OINT (AQUAPHOR) 50 GM TUBE TOP PRN (09:41)
[2022-07-01] MEDS: PANTOPRAZOLE 40 MG TABLET PO SCH (09:41)
[2022-07-01] MEDS: CLOBETASOL 0.05% CREAM 15 GM TUBE TOP SCH ×2 (09:42→23:13)
[2022-07-01] MEDS: DORZOLAMIDE/TIMOLOL OPH SOLN 10 ML BOTTLE BOTH EYES SCH ×2 (09:43→23:13)
[2022-07-01] MEDS: SKIN HEALING OINT (AQUAPHOR) 50 GM TUBE TOP SCH (09:43)
[2022-07-01 09:46] LABS: Albumin 3.2 G/DL (3.4-5.0); Bilirubin,Total 0.6 MG/DL (0.20-1.00); Calcium 9.3 MG/DL (8.5-10.1); Osmolality,Calculated 288.1 MOS/KG (273-304); Total Protein 6.2 G/DL (6.4-8.2)
[2022-07-01] MEDS: CEFUROXIME 500 MG TABLET PO SCH ×2 (09:47→17:28)
[2022-07-01] MEDS: LATANOPROST 0.005% OPH SOLN 2.5 ML BOTTLE BOTH EYES SCH (23:11)
[2022-07-02] MEDS: ALBUTEROL/IPRATROPIUM 3 ML NEB RESP TX SCH ×4 (00:22→11:21)
[2022-07-02 05:20] LABS: Basophils % 0.2 % (0.0-0.8); Eosinophils # 0.2 10*3/uL (0.0-0.87); Eosinophils % 1.3 % (0.00-10.9); Hematocrit 26.4 VOL% (42.0-52.0); Hemoglobin 7.9 GM/DL (14.0-18.0); Immature Granulocytes % 5.9 %; Immature Granulocytes Absolute 0.72 #; Lymphocytes # 1.7 10*3/uL (1.4-4.0); Lymphocytes % 13.9 % (21.2-54.2); Mean Corpuscular HGB Conc 29.9 GM/DL (32-36); Mean Corpuscular Volume 99.6 FL (87-102); Mean Platelet Volume 12.7 FL (9.6-12.0); Monocytes # 1.3 10*3/uL (0.11-0.8); Monocytes % 10.6 % (1.7-12.7); NRBC # 0.05 10*3/uL; Neutrophils % 68.1 % (38.7-73.9); Platelet Count 107 T/CUMM (130-400); Red Blood Count 2.65 MC/CUMM (3.8-5.5); Red Cell Distribution Width 20.6 % (9.3-17.3); White Blood Count 12.3 T/CUMM (4-12)
[2022-07-02] MEDS: HEPARIN 5,000 UNIT/1 ML VIAL SUBCUT SCH ×2 (05:20→15:38)
[2022-07-02 05:41] LABS: Albumin 3.1 G/DL (3.4-5.0); Bilirubin,Total 0.6 MG/DL (0.20-1.00); Calcium 8.9 MG/DL (8.5-10.1); Potassium 4.7 MMOL/L (3.5-5.1); Total Protein 6.1 G/DL (6.4-8.2)
[2022-07-02 05:54] LABS: Eosinophils 1 % (0-10); Hypochromia Slight; Lymphocytes 21 % (20-55); Microcytosis Slight; Total Cells Counted 100
[2022-07-02] MEDS: INSULIN LISPRO 100 UNIT/ML SUBCUT SCH ×2 (08:16→12:28)
[2022-07-02] MEDS: ASPIRIN EC 81 MG TABLET PO SCH (09:01)
[2022-07-02] MEDS: SKIN HEALING OINT (AQUAPHOR) 50 GM TUBE TOP SCH (09:01)
[2022-07-02] MEDS: CEFUROXIME 500 MG TABLET PO SCH (09:01)
[2022-07-02] MEDS: hydrALAZINE 25 MG TABLET PO SCH ×2 (09:01→15:31)
[2022-07-02] MEDS: CLOBETASOL 0.05% CREAM 15 GM TUBE TOP SCH (09:02)
[2022-07-02] MEDS: DORZOLAMIDE/TIMOLOL OPH SOLN 10 ML BOTTLE BOTH EYES SCH (09:02)
[2022-07-02] MEDS: METOPROLOL SUCCINATE XL 50 MG TABLET PO SCH (09:02)
[2022-07-02] MEDS: VALSARTAN 160 MG TABLET PO SCH (09:02)
[2022-07-02] MEDS: DOCUSATE SODIUM 100 MG CAPSULE PO SCH (09:02)
[2022-07-02] MEDS: PANTOPRAZOLE 40 MG TABLET PO SCH (09:02)
[2022-07-02 14:32] VITALS: BP 179/95
[2022-07-02] MEDS: methylPREDNISolone SOD SUC 40 MG/1 ML VIAL IV SCH (15:29)
== END 2022-07-02 15:34 | disposition home health service (06) | DRG 314 ==
LOC: EDBD → EDUNIT# → N.TELES 04:26 → N.ED 04:26 → SUATTDRO 05:58 → N.TELES 07:45 → N.CC 06-25 16:52 → N.TELES 06-28 19:16
PROVIDERS: ADMIT Family Medicine; ATTEND Family Medicine

== ENCOUNTER 2022-07-15 19:41 | Inpatient (IN) ==
[2022-07-15 21:33] LABS: Basophils % 0.3 % (0.0-0.8); Eosinophils # 0.2 10*3/uL (0.0-0.87); Eosinophils % 2.3 % (0.00-10.9); Hematocrit 37.5 VOL% (42.0-52.0); Hemoglobin 11.1 GM/DL (14.0-18.0); Immature Granulocytes % 0.9 %; Immature Granulocytes Absolute 0.07 #; Lymphocytes % 13.2 % (21.2-54.2); Mean Corpuscular HGB Conc 29.6 GM/DL (32-36); Mean Platelet Volume 12.2 FL (9.6-12.0); Monocytes # 0.4 10*3/uL (0.11-0.8); Monocytes % 5.3 % (1.7-12.7); NRBC # 0.04 10*3/uL; Platelet Count 131 T/CUMM (130-400); Red Blood Count 3.75 MC/CUMM (3.8-5.5); Red Cell Distribution Width 20.7 % (9.3-17.3)
[2022-07-15 21:35] LABS: White Blood Count 7.8 T/CUMM (4-12)
[2022-07-15 21:49] LABS: Albumin 2.1 G/DL (3.4-5.0); Bilirubin,Total 0.5 MG/DL (0.20-1.00); Osmolality,Calculated 307.4 MOS/KG (273-304); Potassium 5.6 MMOL/L (3.5-5.1); Total Protein 5.1 G/DL (6.4-8.2)
[2022-07-15 21:57] LABS: INR 1.2; PT Patient Result 13.1 SECS (10.1-12.1)
[2022-07-15] MEDS ORDERED: SODIUM CHLORIDE 0.9% 1,000 ML IV STA (22:47)
[2022-07-15] MEDS ORDERED: DEXTROSE 50% 25 GM/50 ML VIAL IV STA (23:18)
[2022-07-15] MEDS ORDERED: ALBUTEROL/IPRATROPIUM 3 ML NEB RESP TX STA (23:19)
[2022-07-15] MEDS ORDERED: INSULIN REGULAR 100 UNIT/ML IV STA (23:19)
[2022-07-15] MEDS ORDERED: DEXTROSE 10% 250 ML BAG IV STA (23:22)
[2022-07-15] MEDS ORDERED: ONDANSETRON 4 MG/2 ML VIAL IV PRN (23:25)
[2022-07-15] MEDS ORDERED: ACETAMINOPHEN 325 MG TABLET PO PRN (23:25)
[2022-07-15] MEDS ORDERED: ASPIRIN CHEW 81 MG TABLET PO STA (23:25)
[2022-07-15] MEDS ORDERED: ALBUTEROL/IPRATROPIUM 3 ML NEB RESP TX PRN (23:25)
[2022-07-15] MEDS ORDERED: SODIUM POLYSTYRENE SULFATE 15 GM/60 ML BOTTLE PO STA (23:33)
[2022-07-16] MEDS ORDERED: SODIUM CHLORIDE 0.9% 1,000 ML IV SCH (00:15)
[2022-07-16 00:23] LABS: Bilirubin,Urine Moderate mg/dL (Negative); Blood, Urine Negative (Negative); Glucose,Urine (UA) Negative (Negative); Hyaline Casts,Urine 73 /LPF (0-3); Ketones,Urine Trace mg/dL (Negative); Mucus,Urine Occasional /LPF (Occasional); Nitrite,Urine Negative (Negative); Protein,Urine 100 mg/dL (Negative); Squamous Epithelial Cell,Urine Occasional /HPF (0-10); Transitional Epi Cells,Urine Occasional /HPF (<1); Urine Appearance Clear (Clear); Urine Color Yellow (Yellow); Urine Specific Gravity >= 1.030 (1.001-1.035)
[2022-07-16] MEDS: methylPREDNISolone SOD SUC 40 MG/1 ML VIAL IV SCH ×3 (01:47→15:40)
[2022-07-16] MEDS ORDERED: SODIUM POLYSTYRENE SULFATE 15 GM/60 ML BOTTLE PO ONE (02:00)
[2022-07-16 04:36] LABS: Basophils % 0.3 % (0.0-0.8); Eosinophils # 0.2 10*3/uL (0.0-0.87); Eosinophils % 2.8 % (0.00-10.9); Hematocrit 35.1 VOL% (42.0-52.0); Hemoglobin 10.4 GM/DL (14.0-18.0); Immature Granulocytes % 0.7 %; Immature Granulocytes Absolute 0.05 #; Lymphocytes # 1.2 10*3/uL (1.4-4.0); Lymphocytes % 16.6 % (21.2-54.2); Mean Corpuscular HGB Conc 29.6 GM/DL (32-36); Mean Corpuscular Volume 102.3 FL (87-102); Mean Platelet Volume 12.7 FL (9.6-12.0); Monocytes # 0.6 10*3/uL (0.11-0.8); Monocytes % 8.8 % (1.7-12.7); NRBC # 0.03 10*3/uL; Neutrophils % 70.8 % (38.7-73.9); Platelet Count 125 T/CUMM (130-400); Red Blood Count 3.43 MC/CUMM (3.8-5.5); Red Cell Distribution Width 20.4 % (9.3-17.3); White Blood Count 7.1 T/CUMM (4-12)
[2022-07-16 04:55] LABS: Albumin 1.8 G/DL (3.4-5.0); Bilirubin,Total 0.4 MG/DL (0.20-1.00); Calcium 7.8 MG/DL (8.5-10.1); Osmolality,Calculated 308.4 MOS/KG (273-304); Potassium 5.2 MMOL/L (3.5-5.1); Total Protein 4.6 G/DL (6.4-8.2)
[2022-07-16 05:20] LABS: Band Neutrophils 1 % (0-10); Eosinophils 2 % (0-10); Lymphocytes 10 % (20-55); Nucleated Red Blood Cells 1 /100 WBC (0-5); Total Cells Counted 100
[2022-07-16] MEDS: METOPROLOL SUCCINATE XL 25 MG TABLET PO SCH (08:36)
[2022-07-16] MEDS: PANTOPRAZOLE 40 MG VIAL IV SCH (08:36)
[2022-07-16] MEDS: DOCUSATE SODIUM 100 MG CAPSULE PO SCH ×2 (08:39→21:49)
[2022-07-16] MEDS: SODIUM CHLORIDE 0.45% 1,000 ML IV SCH ×2 (08:40→17:30)
[2022-07-16] MEDS: cefTRIAXone 1,000 MG in SODIUM CHLORIDE 0.9% 100 ML IV SCH (08:40)
[2022-07-16] MEDS ORDERED: ATORVASTATIN 40 MG TABLET PO SCH (09:00)
[2022-07-16] MEDS ORDERED: VALSARTAN 160 MG TABLET PO SCH (09:00)
[2022-07-16] MEDS ORDERED: SODIUM CHLORIDE 0.45% 500 ML IV ONE (12:34)
[2022-07-16] MEDS: SKIN HEALING OINT (AQUAPHOR) 50 GM TUBE TOP SCH (21:49)
[2022-07-17] MEDS: methylPREDNISolone SOD SUC 40 MG/1 ML VIAL IV SCH ×3 (00:06→18:18)
[2022-07-17] MEDS: SODIUM CHLORIDE 0.45% 1,000 ML IV SCH ×2 (03:45→18:06)
[2022-07-17] MEDS ORDERED: ALBUMIN 25% 25 GM/100 ML VIAL IV ONE (05:00)
[2022-07-17 06:03] LABS: Calcium 6.9 MG/DL (8.5-10.1); Osmolality,Calculated 311.4 MOS/KG (273-304); Phosphorous 8.7 MG/DL (2.5-4.9); Potassium 5.2 MMOL/L (3.5-5.1)
[2022-07-17 06:04] LABS: Basophils % 0.1 % (0.0-0.8); Eosinophils % 0.2 % (0.00-10.9); Hematocrit 38.5 VOL% (42.0-52.0); Hemoglobin 11.6 GM/DL (14.0-18.0); Immature Granulocytes % 0.5 %; Immature Granulocytes Absolute 0.04 #; Lymphocytes # 0.9 10*3/uL (1.4-4.0); Lymphocytes % 10.6 % (21.2-54.2); Mean Corpuscular HGB Conc 30.1 GM/DL (32-36); Mean Corpuscular Volume 100.5 FL (87-102); Mean Platelet Volume 12.6 FL (9.6-12.0); Monocytes # 0.4 10*3/uL (0.11-0.8); Monocytes % 4.9 % (1.7-12.7); NRBC # 0.04 10*3/uL; Neutrophils % 83.7 % (38.7-73.9); Platelet Count 112 T/CUMM (130-400); Red Blood Count 3.83 MC/CUMM (3.8-5.5); White Blood Count 8.8 T/CUMM (4-12)
[2022-07-17 06:23] LABS: Band Neutrophils 2 % (0-10); Lymphocytes 5 % (20-55); Total Cells Counted 100
[2022-07-17 06:25] LABS: Acanthocytes Few; Burr Cells Slight; Microcytosis Slight
[2022-07-17 06:26] LABS: Platelet Estimate Decreased
[2022-07-17] MEDS: PANTOPRAZOLE 40 MG VIAL IV SCH (09:35)
[2022-07-17] MEDS: DOCUSATE SODIUM 100 MG CAPSULE PO SCH ×2 (09:41→20:23)
[2022-07-17] MEDS: METOPROLOL SUCCINATE XL 25 MG TABLET PO SCH (09:41)
[2022-07-17] MEDS: SKIN HEALING OINT (AQUAPHOR) 50 GM TUBE TOP SCH ×2 (09:46→20:23)
[2022-07-17] MEDS: cefTRIAXone 1,000 MG in SODIUM CHLORIDE 0.9% 100 ML IV SCH (09:46)
[2022-07-17 12:22] VITALS: BP 72/38
[2022-07-17] MEDS ORDERED: SODIUM CHLORIDE 0.9% 500 ML IV ONE (13:36)
[2022-07-17] MEDS ORDERED: DEXTROSE 10% 250 ML BAG IV PRN (13:48)
[2022-07-17] MEDS ORDERED: GLUCAGON 1 MG VIAL IM PRN (13:48)
[2022-07-17] MEDS ORDERED: NOREPINEPHRINE 4 MG in SODIUM CHLORIDE 0.9% 246 ML IV PRN (15:29)
[2022-07-17] MEDS ORDERED: DIGOXIN 0.5 MG/2 ML AMP IV ONE ×2 (15:29→16:30)
[2022-07-17] MEDS: NOREPINEPHRINE 8 MG in SODIUM CHLORIDE 0.9% 242 ML IV PRN (16:07)
[2022-07-17] MEDS: INSULIN LISPRO 100 UNIT/ML SUBCUT SCH ×2 (17:33→20:23)
[2022-07-18] MEDS: SODIUM CHLORIDE 0.45% 1,000 ML IV SCH ×3 (02:08→11:47)
[2022-07-18] MEDS ORDERED: SODIUM CHLORIDE 0.9% 500 ML IV ONE (02:11)
[2022-07-18] MEDS: NOREPINEPHRINE 8 MG in SODIUM CHLORIDE 0.9% 242 ML IV PRN ×4 (02:12→21:35)
[2022-07-18] MEDS: methylPREDNISolone SOD SUC 40 MG/1 ML VIAL IV SCH ×3 (02:55→17:48)
[2022-07-18 03:48] LABS: Basophils % 0.1 % (0.0-0.8); NRBC # 0.34 10*3/uL; Red Blood Count 3.68 MC/CUMM (3.8-5.5)
[2022-07-18 04:11] LABS: Alanine Aminotransferase 19 U/L (16-61); Alkaline Phosphatase 148 U/L (45-117); Aspartate Amino Transferase 14 U/L (0-37); Bilirubin,Total < 0.39 MG/DL (0.20-1.00); Blood Urea Nitrogen 64 MG/DL (7-18); Calcium 6.1 MG/DL (8.5-10.1); Carbon Dioxide 25 MMOL/L (21-32); Chloride 115 MMOL/L (98-107); Eosinophils % 0.3 % (0.00-10.9); Glucose 110 MG/DL (74-106); Immature Granulocytes % 0.6 %; Immature Granulocytes Absolute 0.09 #; Lymphocytes # 1.4 10*3/uL (1.4-4.0); Lymphocytes % 9.8 % (21.2-54.2); Mean Corpuscular HGB Conc 28.7 GM/DL (32-36); Mean Corpuscular Volume 104.1 FL (87-102); Mean Platelet Volume 12.6 FL (9.6-12.0); Monocytes # 0.8 10*3/uL (0.11-0.8); Monocytes % 5.9 % (1.7-12.7); Neutrophils % 83.3 % (38.7-73.9); Osmolality,Calculated 310.4 MOS/KG (273-304); Platelet Count 131 T/CUMM (130-400); Potassium 5.8 MMOL/L (3.5-5.1); Sodium 147 MMOL/L (136-145); Total Protein 4.2 G/DL (6.4-8.2); White Blood Count 13.9 T/CUMM (4-12)
[2022-07-18 04:13] LABS: High Sensitive Troponin I* 1232.1 ng/L (0-78)
[2022-07-18 04:21] LABS: Hematocrit 38.3 VOL% (42.0-52.0)
[2022-07-18] MEDS ORDERED: CALCIUM GLUCONATE RIDER 2,000 MG/100 ML PREMIX IV ONE (07:30)
[2022-07-18] MEDS: INSULIN LISPRO 100 UNIT/ML SUBCUT SCH ×4 (07:55→20:02)
[2022-07-18] MEDS: cefTRIAXone 1,000 MG in SODIUM CHLORIDE 0.9% 100 ML IV SCH (09:11)
[2022-07-18] MEDS: PANTOPRAZOLE 40 MG VIAL IV SCH (09:11)
[2022-07-18] MEDS: DOCUSATE SODIUM 100 MG CAPSULE PO SCH ×2 (09:15→20:01)
[2022-07-18] MEDS: METOPROLOL SUCCINATE XL 25 MG TABLET PO SCH (09:17)
[2022-07-18] MEDS: oxyCODONE/ACETAMINOPHEN 5-325 MG TABLET PO PRN (12:43)
[2022-07-18] MEDS: SODIUM ZIRCONIUM CYCLOSILICATE 10 GM PACK PO SCH ×2 (13:00→20:02)
[2022-07-18] MEDS: SKIN HEALING OINT (AQUAPHOR) 50 GM TUBE TOP SCH ×2 (13:55→20:01)
[2022-07-18] MEDS ORDERED: LEVOFLOXACIN INJ 750 MG/150 ML PREMIX IV SCH (18:00)
[2022-07-18] MEDS: MORPHINE 2 MG/1 ML SYRINGE IV PRN (18:06)
[2022-07-19] MEDS: MORPHINE 2 MG/1 ML SYRINGE IV PRN ×3 (02:28→20:34)
[2022-07-19] MEDS: NOREPINEPHRINE 8 MG in SODIUM CHLORIDE 0.9% 242 ML IV PRN ×7 (03:26→22:40)
[2022-07-19 04:05] LABS: Alanine Aminotransferase 18 U/L (16-61); Albumin 1.8 G/DL (3.4-5.0); Alkaline Phosphatase 140 U/L (45-117); Aspartate Amino Transferase 11 U/L (0-37); Bilirubin,Total < 0.39 MG/DL (0.20-1.00); Blood Urea Nitrogen 72 MG/DL (7-18); Calcium 5.9 MG/DL (8.5-10.1); Carbon Dioxide 25 MMOL/L (21-32); Chloride 113 MMOL/L (98-107); Glucose 101 MG/DL (74-106); Osmolality,Calculated 306.8 MOS/KG (273-304); Potassium 5.9 MMOL/L (3.5-5.1); Sodium 144 MMOL/L (136-145); Total Protein 4.6 G/DL (6.4-8.2)
[2022-07-19] MEDS ORDERED: INSULIN REGULAR 10 UNIT, CALCIUM GLUCONATE 1,000 MG in DEXTROSE 10% 250 ML IV ONE (04:17)
[2022-07-19 04:20] LABS: Basophils % 0.2 % (0.0-0.8); Eosinophils % 0.4 % (0.00-10.9); Hemoglobin 10.1 GM/DL (14.0-18.0); Immature Granulocytes % 1.4 %; Immature Granulocytes Absolute 0.13 #; Lymphocytes # 1.2 10*3/uL (1.4-4.0); Lymphocytes % 12.4 % (21.2-54.2); Mean Corpuscular HGB Conc 28.9 GM/DL (32-36); Mean Corpuscular Volume 104.5 FL (87-102); Mean Platelet Volume 12.9 FL (9.6-12.0); Monocytes # 0.7 10*3/uL (0.11-0.8); Monocytes % 7.3 % (1.7-12.7); NRBC # 0.54 10*3/uL; Neutrophils % 78.3 % (38.7-73.9); Platelet Count 76 T/CUMM (130-400); Red Blood Count 3.34 MC/CUMM (3.8-5.5); Red Cell Distribution Width 20.8 % (9.3-17.3); White Blood Count 9.4 T/CUMM (4-12)
[2022-07-19 04:21] LABS: Hematocrit 34.9 VOL% (42.0-52.0)
[2022-07-19] MEDS: methylPREDNISolone SOD SUC 40 MG/1 ML VIAL IV SCH ×2 (04:24→17:15)
[2022-07-19] MEDS: oxyCODONE/ACETAMINOPHEN 5-325 MG TABLET PO PRN (04:26)
[2022-07-19] MEDS ORDERED: NOREPINEPHRINE 4 MG/4 ML VIAL IV ONE (08:13)
[2022-07-19] MEDS: CALCIUM GLUCONATE RIDER 2,000 MG/100 ML PREMIX IV SCH ×2 (09:37→13:34)
[2022-07-19] MEDS: DOCUSATE SODIUM 100 MG CAPSULE PO SCH ×2 (09:38→20:26)
[2022-07-19] MEDS: PANTOPRAZOLE 40 MG VIAL IV SCH (09:38)
[2022-07-19] MEDS: SKIN HEALING OINT (AQUAPHOR) 50 GM TUBE TOP SCH ×2 (09:38→20:26)
[2022-07-19] MEDS: INSULIN LISPRO 100 UNIT/ML SUBCUT SCH ×4 (09:39→23:40)
[2022-07-19] MEDS: METOPROLOL SUCCINATE XL 25 MG TABLET PO SCH (09:40)
[2022-07-19] MEDS: cefTRIAXone 1,000 MG in SODIUM CHLORIDE 0.9% 100 ML IV SCH (09:57)
[2022-07-19] MEDS: SODIUM ZIRCONIUM CYCLOSILICATE 10 GM PACK PO SCH ×2 (15:36→20:26)
[2022-07-19 16:50] LABS: ABG Base Excess -10.5 MMOL/L (-2.5-2.5); ABG HCO3 16.1 MMOL/L (20-26); ABG Oxygen Saturation 98.4 % (95-100)
[2022-07-19 17:03] LABS: ABG PCO2 79.1 MM HG (35-48); ABG PH 7.047 (7.35-7.45)
[2022-07-19] MEDS ORDERED: DEXTROSE 50% 25 GM/50 ML SYRINGE IV ONE (17:40)
[2022-07-19 17:55] LABS: ABG Base Excess -11.3 MMOL/L (-2.5-2.5); ABG HCO3 15.6 MMOL/L (20-26); ABG Oxygen Saturation 97.9 % (95-100); ABG TCO2 21.9 MMOL/L (23-27)
[2022-07-19 17:57] LABS: ABG PCO2 90.6 MM HG (35-48); ABG PH 7.002 (7.35-7.45)
[2022-07-19] MEDS ORDERED: ETOMIDATE 20 MG/10 ML VIAL IV ONE ×2 (18:12→18:40)
[2022-07-19] MEDS ORDERED: ROCURONIUM 100 MG/10 ML VIAL IV ONE ×2 (18:12→18:40)
[2022-07-19 18:53] LABS: ABG Base Excess -9.8 MMOL/L (-2.5-2.5); ABG HCO3 16.6 MMOL/L (20-26); ABG Oxygen Saturation 99.7 % (95-100); ABG PCO2 59.9 MM HG (35-48); ABG TCO2 18.9 MMOL/L (23-27)
[2022-07-19 18:53] LABS: Calcium 6.5 MG/DL (8.5-10.1); Osmolality,Calculated 309.7 MOS/KG (273-304)
[2022-07-19 18:55] LABS: ABG PH 7.132 (7.35-7.45)
[2022-07-19 18:56] LABS: Potassium 6.3 MMOL/L (3.5-5.1)
[2022-07-19] MEDS: MIDAZOLAM 100 MG in SODIUM CHLORIDE 0.9% 80 ML IV PRN (19:44)
[2022-07-19] MEDS: fentaNYL INJ 1,250 MCG in SODIUM CHLORIDE 0.9% 225 ML IV PRN (21:00)
[2022-07-20] MEDS: NOREPINEPHRINE 8 MG in SODIUM CHLORIDE 0.9% 242 ML IV PRN ×4 (01:07→12:05)
[2022-07-20] MEDS: MIDAZOLAM 100 MG in SODIUM CHLORIDE 0.9% 80 ML IV PRN (03:30)
[2022-07-20] MEDS: fentaNYL INJ 1,250 MCG in SODIUM CHLORIDE 0.9% 225 ML IV PRN ×2 (03:45→11:20)
[2022-07-20 03:57] LABS: ABG Base Excess -8.4 MMOL/L (-2.5-2.5); ABG HCO3 17.7 MMOL/L (20-26); ABG Oxygen Saturation 99.5 % (95-100); ABG PCO2 25.5 MM HG (35-48); ABG PH 7.387 (7.35-7.45); ABG TCO2 13.9 MMOL/L (23-27)
[2022-07-20 04:04] LABS: Basophils % 0.2 % (0.0-0.8); Eosinophils # 0.1 10*3/uL (0.0-0.87); Eosinophils % 0.7 % (0.00-10.9); Hematocrit 32.3 VOL% (42.0-52.0); Hemoglobin 9.8 GM/DL (14.0-18.0); Immature Granulocytes % 1.9 %; Immature Granulocytes Absolute 0.18 #; Lymphocytes # 1.2 10*3/uL (1.4-4.0); Lymphocytes % 13.1 % (21.2-54.2); Mean Corpuscular HGB Conc 30.3 GM/DL (32-36); Mean Corpuscular Volume 97.9 FL (87-102); Monocytes # 0.9 10*3/uL (0.11-0.8); Monocytes % 9.6 % (1.7-12.7); NRBC # 0.31 10*3/uL; Neutrophils % 74.5 % (38.7-73.9); Red Cell Distribution Width 20.3 % (9.3-17.3); White Blood Count 9.4 T/CUMM (4-12)
[2022-07-20] MEDS: methylPREDNISolone SOD SUC 40 MG/1 ML VIAL IV SCH (04:04)
[2022-07-20 04:06] LABS: Platelet Count 40 T/CUMM (130-400)
[2022-07-20 04:13] LABS: Albumin 1.7 G/DL (3.4-5.0); Bilirubin,Total 0.4 MG/DL (0.20-1.00); Calcium 6.2 MG/DL (8.5-10.1); Osmolality,Calculated 312.6 MOS/KG (273-304); Potassium 5.5 MMOL/L (3.5-5.1); Total Protein 4.4 G/DL (6.4-8.2)
[2022-07-20 04:27] LABS: Band Neutrophils 1 % (0-10); Eosinophils 2 % (0-10); Lymphocytes 6 % (20-55); Nucleated Red Blood Cells 4 /100 WBC (0-5); Platelet Estimate Decreased; Total Cells Counted 100
[2022-07-20] MEDS: INSULIN LISPRO 100 UNIT/ML SUBCUT SCH ×2 (05:42→12:09)
[2022-07-20] MEDS ORDERED: NOREPINEPHRINE 4 MG/4 ML VIAL IV ONE (07:07)
[2022-07-20] MEDS: SODIUM ZIRCONIUM CYCLOSILICATE 10 GM PACK PO SCH ×2 (08:02→15:31)
[2022-07-20] MEDS: PANTOPRAZOLE 40 MG VIAL IV SCH (08:02)
[2022-07-20] MEDS: METOPROLOL SUCCINATE XL 25 MG TABLET PO SCH (08:02)
[2022-07-20] MEDS: DOCUSATE SODIUM 100 MG CAPSULE PO SCH (08:02)
[2022-07-20] MEDS: SKIN HEALING OINT (AQUAPHOR) 50 GM TUBE TOP SCH (08:02)
[2022-07-20] MEDS ORDERED: SODIUM BICARBONATE 50 MEQ/50 ML VIAL IV ONE (09:16)
[2022-07-20] MEDS ORDERED: CALCIUM GLUCONATE RIDER 2,000 MG/100 ML PREMIX IV ONE (10:27)
[2022-07-20] MEDS ORDERED: SODIUM BICARB INJ 100 MEQ in DEXTROSE 5% 1,000 ML IV SCH (10:30)
[2022-07-20] MEDS: MORPHINE 2 MG/1 ML SYRINGE IV PRN ×2 (15:00→16:33)
[2022-07-20] MEDS: LORazepam 2 MG/1 ML VIAL IV SCH ×5 (15:31→18:03)
== END 2022-07-20 20:00 | disposition expired | DRG 871 ==
LOC: EDUNIT# → EDBD → N.ED 19:41 → N.EDINP 19:41 → SUATTDRO 23:23 → N.TELES 23:45 → SUATTDRO 07-17 10:22 → N.ICU 07-17 14:25 → N.TELEN 07-20 17:48
PROVIDERS: ADMIT Family Medicine; ATTEND Family Medicine